=== PATIENT | female | born 1965 | race Caucasian/White ===

== ENCOUNTER 2018-04-20 01:37 | Inpatient (IN) ==
[2018-04-20] MEDS ORDERED: *HR* Promethazine 25 MG/ML VIAL IVP PRN (04:44)
[2018-04-20] MEDS ORDERED: GI Cocktail 40 ML EACH PO ONE (05:24)
[2018-04-20] MEDS ORDERED: traMADol 50 MG TABLET PO PRN (05:25)
[2018-04-20] MEDS ORDERED: Naloxone 0.4 MG/ML INJ IVP PRN (05:25)
[2018-04-20] MEDS ORDERED: Acetaminophen 325 MG TABLET PO PRN (05:25)
[2018-04-20 05:40] LABS: Basophils # 0.1 K/mcL (0.0-0.2); Basophils % 0.3 %; Eosinophils % 0.1 %; Hematocrit 43.7 % (35.3-44.9); Hemoglobin 15.1 g/dL (11.5-15.4); Immature Granulocytes % 0.4 % (0-4); Lymphocytes # 2.3 K/mcL (0.6-4.6); Lymphocytes % 13.8 %; Mean Corpuscular HGB Conc 34.6 g/dL (31.6-35.5); Mean Corpuscular Hemoglobin 31.1 pg (28.0-33.3); Mean Corpuscular Volume 89.9 fL (83.0-100.0); Mean Platelet Volume 9.4 fL (9.4-12.4); Monocytes # 2.2 K/mcL (0.0-1.3); Monocytes % 13.4 %; Neutrophils # 11.7 K/mcL (1.6-8.9); Platelet Count 259 K/mcL (140-400); Red Blood Count 4.86 M/mcL (3.82-4.97); Red Cell Distribution Width 12.1 % (11.5-14.5)
--- NOTE | 2018-04-20 05:51 | Internal Med History&Physical ---
Date of Encounter: 04/20/18 Time of Encounter: 05:00 Internal Medicine - H&P: HPI Chief complaint: CP Admitted From: Hospital to Hospital Transfer Plans for Post Hospital Care: Home History of present illness: Ms. Brewster is a 52 year old female w/PMH of HLD, thyroid disease, neuropathy, MS with injections weekly x3, and anxiety/depression presents from [facility] w/CP that pt. reports began last week as sharp and stabbing pain followed by pressure in central chest. Patient states 4 days ago she developed a fever with nausea and vomiting. Patient also reports shortness of breath and chest pain began again last night. With same symptoms of sharp/stabbing pain followed by pressure. Denies radiation to any arms, neck, or back. Patient also reports high BP and HR during symptoms. Patient reports she is a current smoker smoking 4 cigarettes per day. Denies alcohol or drug abuse. No alleviating or aggravating factors. Patient reports CP, SOB, nausea, vomiting, and fever but denies headache, changes in vision, unusual bleeding, diarrhea, constipation, dizziness, numbness, numbness, tingling, pre-syncope, or syncope. Past Med Surg Social Fam HX - Past Medical History Source: patient, old records reviewed Medical history: hyperlipidemia, thyroid disease, other (Neuropathy, MS) Psychiatric history: anxiety, depression - Past Surgical History Surgical History: breast surgery (Double mastectomy), hysterectomy (Partial) - Social History Smoking Status: Current every day smoker Packs per day: 4 cigarettes per day Smokeless Tobacco Status: No Alcohol use: none Drug use: none Current living situation: Home, With Family Activity Level: Independent ambulation Recent Out of Country Travel Within the Last 8 Weeks: No Exposure or Possible Exposure to Illness During Travel: No - Family History Mother Race: Family Member Ethnicity: Non- Living Status: Age at : 73 Cause of : Acute myeloid leukemia Hx Family Cardiac Disorders: Yes (HTN, HLD, CAD, CHF, MIs w/stents x4) Father Race: Family Member Ethnicity: Non- Living Status: Still Living Hx Family Cardiac Disorders: Yes (ND, CVA) Hx Family Endocrine Disorder: Yes (DM) Hx Family Neurologic Disorders: Yes (CVA) Brother Race: Family Member Ethnicity: Non- Living Status: Still Living Hx Family Medical Disorders: No Sister Race: Family Member Ethnicity: Non- Living Status: Still Living Hx Family Medical Disorders: No Internal Medicine - H&P: Meds Atorvastatin [Lipitor] 80 mg PO DAILY 04/20/18 [History] Gabapentin [Neurontin] 800 mg PO TID 04/20/18 [History] Levothyroxine [Synthroid] 50 mcg PO 0600 04/20/18 [History] Mirtazapine [Remeron] 30 mg PO HS 04/20/18 [History] diazePAM [Valium] 5 mg PO QID 04/20/18 [History] Allergy/AdvReac Type Severity Reaction Status Date / Time ondansetron [From Zofran] AdvReac Vomiting Verified 04/20/18 04:30 All Systems PM: A 10-system review of systems was performed and is negative for pertinent findings except as documented above in the HPI. - Constitutional Constitutional: as per HPI, fever(s), no chills, no night sweats - EENT Eyes: no change in vision, no discharge, no pain, no photophobia Ears: no ear discharge, no ear pain, no tinnitus Nose, mouth and throat: no dysphagia, no nasal discharge, no neck pain, no sore throat - Breasts Breasts: as per HPI - Cardiovascular Cardiovascular ROS IM: as per HPI, chest pain, dyspnea, dyspnea on exertion, no diaphoresis, no lightheadedness, no palpitations, no syncope - Respiratory Respiratory: as per HPI, dyspnea, dyspnea on exertion, no cough, no wheezing, no excessive phlegm production - Gastrointestinal Gastrointestinal: as per HPI, abdominal pain, heartburn, nausea, vomiting, no diarrhea, no hematemesis, no hematochezia, no melena - Genitourinary Genitourinary: no change in urinary stream, no dysuria, no flank pain, no hematuria Menstruation: as per HPI, post hysterectomy - Musculoskeletal Musculoskeletal ROS IM: no numbness, no tingling - Integumentary Integumentary IM: no rash, no unusual bruising - Neurological Neurological ROS: no confusion, no convulsions, no focal weakness, no numbness, no tingling, no tremor(s) - Psychiatric Psychiatric: as per HPI, anxiety, depression - Endocrine Endocrine IM: as per HPI - Hematologic/Lymphatic Hematologic/Lymphatic: no easy bruising - Allergic/Immunologic Allergic/Immunologic: as per HPI - Constitutional Vitals: Temp Pulse Resp BP Pulse Ox 98.7 F 115 16 109/77 94 04/20/18 03:25 04/20/18 03:25 04/20/18 03:25 04/20/18 03:25 04/20/18 03:25 General appearance: Present: cooperative, mild distress (CP), A&O X 3, pleasant, answers questions appropriately Exam: Patient examined at bedside. Pt. resting in bed and reports continued chest pain in central chest. No nausea or vomiting currently. Pt. denies any other complaints or symptoms at this time. VS: 98.7F temp, HR 115, RR 16, BP 109/77, SpO2 94% on RA. - Head Head exam: Present: atraumatic, normocephalic - Eye Eye exam: Present: PERRL, conjuntiva pink, sclera anicteric Pupils: Present: PERRL - ENT ENT exam: Present: normal exam - Neck Neck exam general surgery: Present: normal inspection, supple, trachea midline. Absent: lymphadenopathy - Respiratory Respiratory exam: Present: CTAB. Absent: accessory muscle use, rales, rhonchi, wheezes - Cardiovascular Cardiovascular exam: Present: RRR, +S1, +S2. Absent: diastolic murmur, gallop, rubs, systolic murmur - GI/Abdominal GI/Abdominal exam: Present: normal bowel sounds, soft, no peritoneal signs. Absent: distended, tenderness - Rectal Rectal exam: Present: deferred - Additional comments: exam deferred. - Extremities Exam Extremities exam: Present: warm, radial pulses palpable and symmetrical. Absent: calf tenderness, cyanotic, pedal edema - Back Exam Back exam: Present: normal inspection - Neurological Exam Neurological exam: Present: alert, CN II-XII intact, oriented X3, no focal deficits. Absent: pronater drift, facial droop, speech deficit - Psychiatric Psychiatric exam: Present: normal affect, normal mood - Skin Skin exam: Present: dry, intact Internal Med - H&P Results - Labs CBC & Chem 7: 04/20/18 06:43 04/20/18 05:21 Labs: Short CBC 04/20/18 Range/Units 05:21 WBC 16.3 H (4.3-11.1) K/mcL Hgb 15.1 (11.5-15.4) g/dL Hct 43.7 (35.3-44.9) % Plt Count 259 (140-400) K/mcL Neutrophils # 11.7 H (1.6-8.9) K/mcL - Assessment and plan (1) Chest pain Current Visit: Yes Status: Acute Assessment and plan: Acute CP that pt. reports began last week as sharp and stabbing pain followed by pressure in central chest. Patient states 4 days ago she developed a fever with nausea and vomiting. Patient also reports shortness of breath and chest pain began again last night. With same symptoms of sharp/stabbing pain followed by pressure. Denies radiation to any arms, neck, or back. Patient also reports high BP and HR during symptoms. Strong familial cardiac hx w/mother and father. Pt. denies cardiac hx or recent testing/work-up. Initial troponin 0.50. Heparin drip started. 1V portable CXR ordered. Echocardiogram. ASA. High-dose Lipitor. Continuous cardiac telemetry. EKG shows sinus tachycardia with probable left atrial enlargement and nonspecific repolarization abnormality with diffuse leads. Borderline ST elevation in anterior leads. Borderline prolonged QT interval. Cardiology consult ordered and discussed w/Dr. Newsome and I appreciate the consult and recommendations. Concern for possible PE or aortic dissection, so CTA of the chest ordered. Will await results. GI cocktail and IVP Protonix. Patient is high risk for cardiac event and further morbidity d/t current CP at rest, strong familial hx of CAD and ND (mother and father), abnormal EKG, elevated troponin requiring heparin gtt and close monitoring of pt. and PT/INR; and risk factors of current tobacco abuse, HLD. Observation. Qualifiers: Chest pain type: other chest pain Qualified Code(s): R07.89 - Other chest pain; R07.8 - Other chest pain (2) SOB (shortness of breath) Current Visit: Yes Status: Acute Assessment and plan: Acute SOB accompanying CP. Patient denies home O2 use. Concern for possible PE or aortic dissection, so CTA of the chest ordered. Will await results. (3) Nausea and vomiting Current Visit: Yes Status: Acute Assessment and plan: Acute N/V for the past several days. Currently controlled. Monitor I&O and daily weight. IVP Phenergan ordered PRN for N/V d/t pts. allergy to Zofran. GI cocktail ordered. IVP Protonix 40 mg daily. Qualifiers: Vomiting type: cyclical vomiting Vomiting Intractability: non-intractable Qualified Code(s): G43.A0 - Cyclical vomiting, not intractable (4) Leukocytosis Current Visit: Yes Status: Acute Assessment and plan: Acute leukocytosis w/WBC of 16.3 on admission. Patient reports approximately 1 week of nausea, vomiting, fever accompanying chest pain and shortness of breath. 1 view portable CXR ordered. Respiratory infection panel ordered. Blood cultures 2 ordered. Lactic acid ordered. No identifiable infection source at this time but will review culture and panel results. Pt. currently afebrile. HR 115. RR 16. Pt. meets sepsis criteria w/HR and WBC, however both could be attributable to current CP and elevated troponin. Will monitor pt. and f/u labs closely. Qualifiers: Leukocytosis type: unspecified Qualified Code(s): D72.829 - Elevated white blood cell count, unspecified (5) HLD (hyperlipidemia) Current Visit: Yes Status: Chronic Assessment and plan: Hx of chronic HLD. Lipid panel in a.m. labs. Continue pts. Lipitor 80 mg HS. Received 80 mg on admission d/t current CP. Qualifiers: Hyperlipidemia type: pure hypercholesterolemia Qualified Code(s): E78.00 - Pure hypercholesterolemia, unspecified; E78.0 - Pure hypercholesterolemia (6) Thyroid disease Current Visit: Yes Status: Chronic Assessment and plan: Hx of chronic thyroid disease. Continue pts. Synthroid. TSH ordered. (7) Multiple sclerosis Current Visit: Yes Status: Chronic Assessment and plan: Hx of chronic MS. Pt. reports taking injections weekly x3. States she is to start seeing Dr. Moya on May 25. Continue injections on OP basis. (8) Neuropathy Current Visit: Yes Status: Chronic Assessment and plan: Pt. reports hx of chronic neuropathy in bilateral LEs. Continue pts. Neurontin. (9) Anxiety and depression Current Visit: Yes Status: Chronic Assessment and plan: Hx of chronic anxiety and depression. Continue pts. Remeron and Valium. (10) DVT prophylaxis Current Visit: Yes Status: Acute Assessment and plan: Heparin drip for DVT prophylaxis d/t current initial troponin of 0.50. Monitor pt. for signs of bleeding. - Time Spent With Patient Total time spent is greater than 50% in coordination of care (as documented) at patient's floor/unit and/or counseling patient: Greater than 35 minutes
[2018-04-20 06:03] LABS: Alanine Aminotransferase 11 Units/L (7-52); Albumin/Globulin Ratio 1.5 (1.1-2.2); Alkaline Phosphatase 53 Units/L (34-104); Aspartate Amino Transferase 13 Units/L (13-39); BUN/Creatinine Ratio 12 (6-26); Bilirubin,Total 1.1 mg/dL (0.3-1.0); Blood Urea Nitrogen 7 mg/dL (6-20); Calcium 8.9 mg/dL (8.6-10.3); Carbon Dioxide 26 mEq/L (23-29); Chloride 107 mEq/L (98-107); Globulin 2.6 g/dL (2.4-3.5); Glucose 131 mg/dL (70-105); Osmolality,Calculated 292 (280-300); Potassium 3.3 mEq/L (3.5-5.1); Sodium 141 mEq/L (136-145); Total Protein 6.6 g/dL (6.4-8.9); eGFR For Non-African Americans > 60 (> 60)
[2018-04-20] MEDS ORDERED: *HR* Heparin 5,000 UNIT/ML VIAL IVP PRN ×2 (06:20)
[2018-04-20] MEDS ORDERED: *HR* Heparin 5,000 UNIT/ML VIAL IVP ONE (06:20)
[2018-04-20] MEDS ORDERED: Pantoprazole 40 MG VIAL IVP SCH (06:30)
[2018-04-20] MEDS ORDERED: Heparin 25,000 UNIT/500 ML D5W 25,000 UNIT/500 ML BAG IVC SCH (06:30)
[2018-04-20] MEDS ORDERED: Isovue-370 500 ML INFUS..BTL IV ONE ×2 (06:50→06:53)
[2018-04-20 07:14] LABS: Hematocrit 42.4 % (35.3-44.9); Hemoglobin 14.8 g/dL (11.5-15.4); Mean Corpuscular HGB Conc 34.9 g/dL (31.6-35.5); Mean Corpuscular Hemoglobin 31.4 pg (28.0-33.3); Mean Corpuscular Volume 89.8 fL (83.0-100.0); Mean Platelet Volume 9.5 fL (9.4-12.4); Platelet Count 259 K/mcL (140-400); Red Blood Count 4.72 M/mcL (3.82-4.97)
[2018-04-20 07:40] LABS: INR 1.6; Prothrombin Time 18.3 Seconds (9.4-12.1)
[2018-04-20 07:51] LABS: Heparin anti-factor XA UFH 1.07 IU/mL (0.30-0.70)
[2018-04-20] MEDS ORDERED: *HR* Morphine Soln 10 MG/5 ML UDC PO PRN (07:54)
[2018-04-20] MEDS ORDERED: Perflutren Lipid Microsphere 1.3 ML in 0.9 % Sodium Chloride 8.7 ML IVP ONE (08:00)
[2018-04-20 09:11] LABS: Amphetamine Screen,Urine Negative ng/mL (Cutoff=1000); Barbiturate Screen,Urine Negative ng/mL (Cutoff=200); Benzodiazepines Screen,Urine Positive ng/mL (Cutoff=200); Cannabinoid Screen,Urine Negative ng/mL (Cutoff = 50); Cocaine Screen,Urine Negative ng/mL (Cutoff= 300); Opiate Screen,Urine Positive ng/mL (Cutoff=300); Phencyclidine Screen,Urine Negative ng/mL (Cutoff=25)
--- NOTE | 2018-04-20 09:30 | Internal Med Progress Note ---
<Maikel Adan - Last Filed: 04/20/18 15:24> Hospitalist Progress Note - Encounter Date of Encounter: 04/20/18 Time of Encounter: 14:42 - Subjective Interval History: Patient was seen and examined this morning. Patient states that she has continued to have intermittent episodes of chest pain, described to be a dull- like pressure in the middle to left side of her chest radiating into her left arm. She states that slight improvement when she is sitting up. No known exertional component that she is aware of. She currently denies any nausea or vomiting, fevers or chills. She does state however that over the past week she has been having subjective fevers and chills. Patient states that she is a chronic smoker, however most recently she is decreased to half a pack per day. She did discuss that she is looking to completely stop smoking given his recent diagnosis. Patient denies any abdominal pain, change in bowels or rash. - Exam Vitals: Temp Pulse Resp BP Pulse Ox 98.7 F 115 16 109/77 94 04/20/18 03:25 04/20/18 03:25 04/20/18 03:25 04/20/18 03:25 04/20/18 03:25 Exam: Gen.: Patient is a pleasant female, sitting up in bed, in slight distress given that the pie dough roller had recently come in and told her that she was going to be having a left heart catheterization, became slightly tearful during our conversation HEENT: Atraumatic, normocephalic, no pallor in the conjunctiva, uvula is midline Chest: Tachycardic, regular rhythm, no murmurs gallops or rubs Respiratory: Minimal wheezing throughout, no crackles, rhonchi or reveals Abdomen: Abdomen is soft, nontender, no guarding or rebound Extremities: No pitting edema, rash, lesions Neuro: Sensation intact, patient able to move all 4 extremities Psych: Patient appears slightly anxious - Assessment and Plan (1) NSTEMI (non-ST elevated myocardial infarction) Current Visit: Yes Status: Acute Assessment and Plan: Patient was a transfer from [facility], where she had CT performed and was inpatient for 3 days following diagnosis of ileus without obstruction. Patient had continued four-day history of chest pain, with shortness of breath. Patient has multiple respecters including hyperlipidemia, history of smoker, an extensive family history of CAD CTA showed no PE or aortic dissection Patient had elevated troponin at 0.910 at [facility], on arrival to [place] was 0.50 on repeat it is appears to be trending down. Patient continues to have intermittent chest pain. Concern with an NSTEMI type I versus type II and a recent setting of elevated blood pressure and ileus. EKG was not obtained on the floor, however there are remarks this was a borderline EKG. Patient had echocardiogram performed which showed ejection fraction of 35% with global left ventricular systolic dysfunction, most prominent in septal segments. left heart catheter was performed on 1 with normal coronaries. Final repo, there was an episode of SVT that was self terminating. Cardiology recommendation is to chidi aspirin, statin, beta wilmer. Recommends adding lisinopril 2.5 mg with outpatient follow-up in 2-3 weeks Plan Continue with cardiology recommendations Continue aspirin, statin, beta wilmer and continue at home lisinopril 2.5 milligrams with outpatient follow-up Continue to monitor with cardiac monitoring and pulse ox Continue to monitor for further SVT continue heparin drip per cardiology (2) HLD (hyperlipidemia) Current Visit: Yes Status: Chronic Assessment and Plan: patient with known heart history of hyperlipidemia Plan Continue statin (3) Thyroid disease Current Visit: Yes Status: Chronic Assessment and Plan: patient with known history of thyroid Continue at home medications Plan Continue at home medications (4) DVT prophylaxis Current Visit: Yes Status: Acute Assessment and Plan: continue heparin drip (5) Leukocytosis Current Visit: Yes Status: Acute Assessment and Plan: patient was found to have a leukocytosis with WBCs of 16, today 16.1. possibly due to infectious etiology, in light of recent ileus Plan We will continue to monitor We will obtain a urinalysis Chest x-ray is negative for acute pneumonia or opacity - Time Spent with Patient Total time spent is greater than 50% in coordination of care (as documented) at patient's floor/unit and/or counseling patient: less than 15 minutes Plan of Care Discussed with: patient Internal Medicine: Result - Labs CBC & Chem 7: 04/20/18 06:43 04/20/18 13:10 Labs: Short CBC 04/20/18 04/20/18 Range/Units 05:21 06:43 WBC 16.3 H 16.1 H (4.3-11.1) K/mcL Hgb 15.1 14.8 (11.5-15.4) g/dL Hct 43.7 42.4 (35.3-44.9) % Plt Count 259 259 (140-400) K/mcL Neutrophils # 11.7 H (1.6-8.9) K/mcL BMP 04/20/18 05:21 Sodium 141 Potassium 3.3 L Chloride 107 Carbon Dioxide 26 BUN 7 Creatinine 0.59 L Glucose 131 H Calcium 8.9 Cardiac Enzymes 04/20/18 Range/Units 05:21 Troponin I 0.50 H* (< 0.04) ng/mL Liver Function 04/20/18 Range/Units 05:21 Total Bilirubin 1.1 H (0.3-1.0) mg/dL AST 13 (13-39) Units/L ALT 11 (7-52) Units/L Alkaline Phosphatase 53 (34-104) Units/L Albumin 4.0 (3.5-5.7) g/dL - ABG Interpretation ABG results: PT/INR, D-dimer PT 18.3 Seconds (9.4-12.1) H 04/20/18 06:43 - Impressions Impressions Chest X-Ray 04/20/18 05:59 IMPRESSION: Persistent areas of subsegmental atelectasis of right lung base. No radiographic evidence of pneumonia or pleural effusion. Continued follow-up could be helpful for further evaluation. D/ / Alan Ambriz / Alan Ambriz Interpreting Provider: Alan Ambriz Chest CTA 04/20/18 06:53 IMPRESSION: 1. No evidence for acute pulmonary embolism. 2. Bilateral small pleural effusions and adjacent posterior basal subsegmental atelectasis and small amount of right lower lobe anterior basal subsegmental atelectasis. D/ / Roldan Parmar MD / Roldan Parmar MD Interpreting Provider: Roldan Pamrar MD Consult Discharge Plan - Plan Referrals: Marylou Shah, ADMINISTRATOR OF HOME HEALTH [Primary Care Provider] - <Samantha Masters - Last Filed: 04/20/18 20:05> Hospitalist Progress Note - Encounter Date of Encounter: 04/20/18 - Exam Vitals: Temp Pulse Resp BP Pulse Ox 97.2 F L 98 16 82/59 95 04/20/18 19:49 04/20/18 19:49 04/20/18 19:49 04/20/18 19:49 04/20/18 19:49 - Assessment and Plan (1) Chest pain Current Visit: Yes Status: Acute (2) Nausea and vomiting Current Visit: Yes Status: Acute (3) Leukocytosis Current Visit: Yes Status: Acute (4) HLD (hyperlipidemia) Current Visit: Yes Status: Chronic (5) Thyroid disease Current Visit: Yes Status: Chronic (6) Multiple sclerosis Current Visit: Yes Status: Chronic (7) Neuropathy Current Visit: Yes Status: Chronic (8) Anxiety and depression Current Visit: Yes Status: Chronic (9) DVT prophylaxis Current Visit: Yes Status: Acute (10) SOB (shortness of breath) Current Visit: Yes Status: Acute - Time Spent with Patient Total time spent is greater than 50% in coordination of care (as documented) at patient's floor/unit and/or counseling patient: Internal Medicine: Result - Labs CBC & Chem 7: 04/20/18 06:43 04/20/18 13:10 Labs: Short CBC 04/20/18 04/20/18 Range/Units 05:21 06:43 WBC 16.3 H 16.1 H (4.3-11.1) K/mcL Hgb 15.1 14.8 (11.5-15.4) g/dL Hct 43.7 42.4 (35.3-44.9) % Plt Count 259 259 (140-400) K/mcL Neutrophils # 11.7 H (1.6-8.9) K/mcL BMP 04/20/18 04/20/18 05:21 13:10 Sodium 141 Potassium 3.3 L 3.3 L Chloride 107 Carbon Dioxide 26 BUN 7 Creatinine 0.59 L Glucose 131 H Calcium 8.9 Cardiac Enzymes 04/20/18 04/20/18 04/20/18 Range/Units 05:21 10:03 16:59 Troponin I 0.50 H* 0.29 H* 0.20 H* (< 0.04) ng/mL Liver Function 04/20/18 Range/Units 05:21 Total Bilirubin 1.1 H (0.3-1.0) mg/dL AST 13 (13-39) Units/L ALT 11 (7-52) Units/L Alkaline Phosphatase 53 (34-104) Units/L Albumin 4.0 (3.5-5.7) g/dL Urine 04/20/18 Range/Units 07:57 Urine Color Yellow (Yellow) Urine Clarity Clear (Clear) Urine pH 6.0 (5.0-8.0) pH Units Ur Specific [place] 1.015 (1.010-1.025) Urine Protein Negative (Neg-Trace) mg/dL Urine Glucose (UA) Normal (Normal) mg/dL - ABG Interpretation ABG results: PT/INR, D-dimer PT 18.3 Seconds (9.4-12.1) H 04/20/18 06:43 - Impressions Impressions Echocardiogram 04/20/18 04:47 Impressions: LVEF 35%. Normal LV chamber size, wall thickness. Global left ventricular systolic dysfunction, but most prominent in the septal segments. Mild left ventricular diastolic dysfunction. Normal right ventricular structure and function. Unable to estimate RVSP due to lack of TR jet. No significant valvular dysfunction. Findings discussed with cardiology rounding team. Left Ventricular Wall Motion: Rest Echo Findings The apex, apical inferior, mid inferior, basal inferior, apical anterior, mid anterior, basal anterior, apical septal, mid inferior septal, basal inferior septal, apical lateral, mid anterior lateral, basal anterior lateral, mid anterior septal, mid inferior lateral, basal anterior septal and basal inferior lateral dutton were hypokinetic. Findings: Study Quality * Technically adequate exam. ECG Findings * Sinus tachycardia. Left Ventricle * LVEF 35%. * Normal LV chamber size, wall thickness. * Global left ventricular systolic dysfunction, but most prominent in the septal segments. * Mild left ventricular diastolic dysfunction. Right Ventricle * Normal right ventricular structure and function. Left Atrium * Mildly dilated left atrium. Right Atrium * Normal right atrial size. Aortic Valve * Aortic valve not well visualized. * No aortic stenosis. * No aortic regurgitation. Mitral Valve * Normal mitral valve structure and function. * No mitral regurgitation. * No mitral stenosis. Tricuspid Valve * Normal tricuspid valve structure and function. * No tricuspid regurgitation. * Unable to estimate RVSP due to lack of TR jet. Pulmonic Valve * Pulmonic valve not well visualized. Aorta * Normally sized aortic root. Pericardium * The pericardium appears normal. IVC * Normal IVC dimensions and inspiratory collapse. Pulmonary Artery * Pulmonary artery not well visualized. Chest X-Ray 04/20/18 05:59 IMPRESSION: Persistent areas of subsegmental atelectasis of right lung base. No radiographic evidence of pneumonia or pleural effusion. Continued follow-up could be helpful for further evaluation. D/ / Alan Ambriz / Alan Ambriz Interpreting Provider: Alan Ambriz Chest CTA 04/20/18 06:53 IMPRESSION: 1. No evidence for acute pulmonary embolism. 2. Bilateral small pleural effusions and adjacent posterior basal subsegmental atelectasis and small amount of right lower lobe anterior basal subsegmental atelectasis. D/ / Roldan Parmar MD / Roldan Parmar MD Interpreting Provider: Roldan Parmar MD - Attending Attestation I have examined this patient [id number] and my medical decision-making was reviewed with the Resident Physician. I agree with the documented findings, disposition and treatment plan as described except to the extent set forth [place] ow. <Maikel Adan - Last Filed: 04/20/18 15:24> (2) HLD (hyperlipidemia) Qualifiers: Hyperlipidemia type: pure hypercholesterolemia Qualified Code(s): E78.00 - Pure hypercholesterolemia, unspecified; E78.0 - Pure hypercholesterolemia (5) Leukocytosis Qualifiers: Leukocytosis type: unspecified Qualified Code(s): D72.829 - Elevated white blood cell count, unspecified <Samantha Masters - Last Filed: 04/20/18 20:05> (1) Chest pain Qualifiers: Chest pain type: chest pain due to myocardial ischemia Ischemic chest pain type: unstable angina pectoris Qualified Code(s): I20.0 - Unstable angina (2) Nausea and vomiting Qualifiers: Vomiting type: cyclical vomiting Vomiting Intractability: non-intractable Qualified Code(s): G43.A0 - Cyclical vomiting, not intractable (3) Leukocytosis Qualifiers: Leukocytosis type: unspecified Qualified Code(s): D72.829 - Elevated white blood cell count, unspecified (4) HLD (hyperlipidemia) Qualifiers: Hyperlipidemia type: pure hypercholesterolemia Qualified Code(s): E78.00 - Pure hypercholesterolemia, unspecified; E78.0 - Pure hypercholesterolemia
--- NOTE | 2018-04-20 09:35 | Cardiology Consult Note ---
<Kim Paulson Dolores - Last Filed: 04/20/18 09:50> Date of Encounter: 04/20/18 Time of Encounter: 08:20 Assessment and Plan (1) Elevated troponin Current Visit: Yes Status: Acute Troponin 0.910 at [facility], now 0.50. NSTEMI type I vs type II in the setting of severely elevated BP, intractable n/v x3 days. Borderline ECG changes noted. Describes both atypical and typical chest pain symptoms. Reproduc Risk factors for CAD include: positive family hx (maternal, paternal), HLD, ?HTN, and tobacco use. Echo pending. Continue heparin gtt, asa, statin, and BB. Recommend LHC with possible PCI to r/o ischemic etiology; A/R/B discussed, she is agreeable to proceed. Will further discuss with Dr. iVllarreal. (2) Chest pain Current Visit: Yes Status: Acute Plan as above. Qualifiers: Chest pain type: chest pain due to myocardial ischemia Ischemic chest pain type: unstable angina pectoris Qualified Code(s): I20.0 - Unstable angina (3) Nausea and vomiting Current Visit: Yes Status: Acute Mgmt per primary service. Qualifiers: Vomiting type: cyclical vomiting Vomiting Intractability: non-intractable Qualified Code(s): G43.A0 - Cyclical vomiting, not intractable Discussion w patient/family: The assessment and plan as outlined above was discussed with the patient and/or family members who expressed understanding and agreement. All questions were answered. Thank you for involving us in the care of your patient. Please call with any questions. The patient will be discussed and reviewed with Dr. Villarreal; changes to be made accordingly. History of Present Illness Consult date: 04/20/18 Requesting physician: Kyle Soares Consult reason: Elevated troponin Chief complaint: Chest pain; n/v History of present illness: Ms. Brewster is a 52 year old female with PMHx significant of anxiety, HLD, MS, and tobacco abuse who presented as a transfer from [facility] ED (patient request) due to elevated troponin--0.9210. Patient reports 2-3 day history of intractable nausea with vomiting, reports has not been able to keep anything down; denies exposure to sick contacts. CT abd/pelvis at [facility] demonstrated ileus without bowel obstruction. Potassium was 2.8. Blood pressure was noted to be severely elevated upon presentation at 177/103. She describes left-sided chest heaviness and pressure with radiation to left arm; also reports chest pain when taking a deep breath and chest pressure that worsens when lying down. Of note, patient reports left-sided chest discomfort associated with dyspnea over the past 1-2 months that worsens with exertion (walking up hills) and improves with rest. She notes she thought it was r/t tobacco abuse which prompted decrease in cigarette consumption--down to 5 cigarettes/day from >1 ppd. No prior CV testing noted. She reports at least 16 surgeries in the past secondary to complications from double mastectomy (multiple benign breast tumors). Past Med Surg Social Fam HX - Past Medical History Attestation: Yes The following information was validated with the patient. Source: patient Medical history: hyperlipidemia, thyroid disease, other (Neuropathy, MS) Psychiatric history: anxiety, depression - Past Surgical History Surgical History: breast surgery (Double mastectomy), hysterectomy (Partial) Additional surgical history: bilateral mastectomy, - Social History Smoking Status: Current every day smoker Packs per day: 4 cigarettes per day Smokeless Tobacco Status: No Alcohol use: none Drug use: none - Family History Mother Race: Family Member Ethnicity: Non- Living Status: Age at : 73 Cause of : Acute myeloid leukemia Hx Family Cardiac Disorders: Yes (HTN, HLD, CAD, CHF, MIs w/stents x4) Father Race: Family Member Ethnicity: Non- Living Status: Still Living Hx Family Cardiac Disorders: Yes ([place], CVA) Hx Family Endocrine Disorder: Yes (DM) Hx Family Neurologic Disorders: Yes (CVA) Brother Race: Family Member Ethnicity: Non- Living Status: Still Living Hx Family Medical Disorders: No Sister Race: Family Member Ethnicity: Non- Living Status: Still Living Hx Family Medical Disorders: No Medications and Allergies Atorvastatin [Lipitor] 80 mg PO DAILY 04/20/18 [History] Gabapentin [Neurontin] 800 mg PO TID 04/20/18 [History] Levothyroxine [Synthroid] 50 mcg PO 0600 04/20/18 [History] Mirtazapine [Remeron] 30 mg PO HS 04/20/18 [History] diazePAM [Valium] 5 mg PO QID 04/20/18 [History] Allergy/AdvReac Type Severity Reaction Status Date / Time ondansetron [From Zofran] AdvReac Vomiting Verified 04/20/18 04:30 All Systems Review: The remainder of the systems were reviewed and are negative - Cardiovascular Cardiovascular: as per HPI Physical Examination General: Conversant, No Apparent Distress HEENT: Atraumatic, Normocephaly Cardiac: Reg Rate and Rhythm, Normal S1 and S2 Lungs: Normal Breath Sounds Neuro: Alert and responsive Abdomen: Soft Skin: No rashes noted on visualized skin Musculoskeletal: Other (reproducible chest wall tenderness) Extremities: No Edema, Normal Pulses Results 04/20/18 06:43 04/20/18 05:21 Lab Results 04/20/18 04/20/18 04/20/18 05:21 05:21 06:43 WBC 16.3 H 16.1 H Hgb 15.1 14.8 Hct 43.7 42.4 Plt Count 259 259 INR Sodium 141 Potassium 3.3 L Chloride 107 Carbon Dioxide 26 BUN 7 Creatinine 0.59 L Glucose 131 H Calcium 8.9 Total Bilirubin 1.1 H AST 13 ALT 11 Alkaline Phosphatase 53 Troponin I 0.50 H* 04/20/18 06:43 WBC Hgb Hct Plt Count INR 1.6 Sodium Potassium Chloride Carbon Dioxide BUN Creatinine Glucose Calcium Total Bilirubin AST ALT Alkaline Phosphatase Troponin I Active Medications Acetaminophen (Tylenol) 650 mg PO Q6HR PRN PRN Reason: Mild Pain/Fever Stop: 10/20/18 05:26 Aspirin (Aspirin Ec) 81 mg PO DAILY [facility] Stop: 10/20/18 09:01 Atorvastatin Calcium (Lipitor) 80 mg PO DAILY [facility] Stop: 10/21/18 05:01 Diazepam (Valium) 5 mg PO QID [facility] Stop: 10/20/18 09:01 Gabapentin (Neurontin) 800 mg PO TID [facility] Stop: 10/20/18 09:01 Heparin Sodium (Porcine) (Heparin) 3,900 unit 60 unit/kg (3900 unit) IVP Q6HR PRN PRN Reason: SEE COMMENTS Stop: 10/20/18 06:21 Heparin Sodium (Porcine) (Heparin) 2,000 unit 30 unit/kg (2000 unit) IVP Q6H PRN PRN Reason: SEE COMMENTS Stop: 10/20/18 06:21 Heparin Sodium/Dextrose (Heparin 25,000 Unit/500 Ml D5w) 25,000 unit in 500 mls @ 15.731 mls/hr IVC .Q24H [facility]; Protocol Stop: 10/20/18 06:31 Last Titration: 04/20/18 07:59 Dose: 0 unit/kg/hr, 0 mls/hr Levothyroxine Sodium (Synthroid) 50 mcg PO 0600 [facility] Stop: 10/20/18 06:01 Last Admin: 04/20/18 06:06 Dose: 50 mcg Mirtazapine (Remeron) 30 mg PO HS [facility] Stop: 10/20/18 21:01 Morphine Sulfate (Morphine Sulfate) 10 mg PO Q6HR PRN PRN Reason: Severe Pain Stop: 10/20/18 07:55 Naloxone HCl (Narcan) 0.4 mg IVP Q2MIN PRN PRN Reason: SEE COMMENTS Stop: 10/20/18 05:26 Omeprazole (Prilosec) 40 mg PO DAILY@0730 [facility]; Protocol Stop: 10/21/18 07:31 Promethazine HCl (Phenergan) 12.5 mg IVP Q6HR PRN PRN Reason: Nausea And Vomiting Stop: 10/20/18 04:45 Tramadol HCl (Ultram) 50 mg PO Q6HR PRN PRN Reason: Moderate Pain Stop: 10/20/18 05:26 Last Admin: 04/20/18 06:06 Dose: 50 mg - Imaging and Cardiology Echo: pending Other Results: 12 hour tele: avg RQ=416 ST. - EKG Interpretation EKG results cardiology: personally reviewed Consult Discharge Plan - Plan Referrals: Marylou Shah CNP [Primary Care Provider] - <Erika Villarreal - Last Filed: 04/20/18 13:11> Date of Encounter: 04/20/18 - Attending Attestation I examined this patient and my medical decision-making was reviewed with the COMMUNICATIONS PROJECT LEAD. I agree with the documented findings, disposition and treatment plan as described. Ms. Brewster transferred from [facility] for chest pain. Patient diagnosed with NSTEMI. Echo demonstrated newly discovered LV systolic dysfunction, LVEF 35%. AAOx3, NAD, chest pain free at bedside. Vital signs stable. No concerning exam findings. Labs reviewed. ECG without acute findings. Impression: 1. NSTEMI: Recommend patient proceed with [facility]. The R/B/A of the procedure were discussed with the patient who expressed understanding of the risks and agreement to proceed. Continue asa, statin, BB, heparin gtt. 2. Systolic CHF: Chronicity unknown. Patient's symptoms started a few months ago. Recommend guideline directed medical therapy. [facility] today. Assessment and Plan Discussion w patient/family: The assessment and plan as outlined above was discussed with the patient and/or family members who expressed understanding and agreement. All questions were answered. Thank you for involving us in the care of your patient. Please call with any questions. History of Present Illness History of present illness: Ms. Brewster is a 52 year old female All Systems Review: The remainder of the systems were reviewed and are negative Results 04/20/18 06:43 04/20/18 05:21 Lab Results 04/20/18 04/20/18 04/20/18 05:21 05:21 06:43 WBC 16.3 H 16.1 H Hgb 15.1 14.8 Hct 43.7 42.4 Plt Count 259 259 INR Sodium 141 Potassium 3.3 L Chloride 107 Carbon Dioxide 26 BUN 7 Creatinine 0.59 L Glucose 131 H Calcium 8.9 Total Bilirubin 1.1 H AST 13 ALT 11 Alkaline Phosphatase 53 Troponin I 0.50 H* 04/20/18 04/20/18 06:43 10:03 WBC Hgb Hct Plt Count INR 1.6 Sodium Potassium Chloride Carbon Dioxide BUN Creatinine Glucose Calcium Total Bilirubin AST ALT Alkaline Phosphatase Troponin I 0.29 H*
[2018-04-20] MEDS: Gabapentin 400 MG CAPSULE PO SCH ×3 (09:41→21:21)
[2018-04-20] MEDS: diazePAM 5 MG TABLET PO SCH ×3 (09:41→17:41)
[2018-04-20] MEDS: Aspirin Enteric Coated 81 MG Tablet PO SCH (09:42)
[2018-04-20] MEDS: *HR* Morphine Soln 10 MG/5 ML UDC PO PRN ×2 (10:14→17:41)
[2018-04-20] MEDS: Metoprolol XL (24 HR) Succ 25 MG TAB.ER.24H PO SCH (10:14)
[2018-04-20] MEDS ORDERED: Verapamil 5 MG/2 ML VIAL ONE (13:39)
--- NOTE | 2018-04-20 13:39 | Pre-Sedation Evaluation ---
Pre-sedation evaluation - Pre-sedation checklist Date of procedure: 04/20/18 Procedure: heart cath Recent Vitals: Last Vital Signs Temp 98.7 F 04/20/18 03:25 Pulse 115 04/20/18 03:25 Resp 16 04/20/18 03:25 BP 109/77 04/20/18 03:25 Pulse Ox 94 04/20/18 03:25 H&P (including ROS) documented in medical record: Yes Previous reaction to sedatives/anesthetics: No Dietary Status: Clear fluids after Midnight Dentition: full dentition ASA Classification *see protocol: CLASS II-Mild systemic disease Plan of Care: Pt appropriate candidate for procedure/moderate/conscious sedation, Risks/benefits of procedure/sedation discussed w/ patient/family Cardiac Registry (Cardio Only) - Functional Capacity Functional Capacity: >=4 METS with symptoms - Clincal Frailty Scale Clinical Frailty Scale: Managing Well
[2018-04-20] MEDS ORDERED: *HR* Heparin 10,000 UNIT/10 ML VIAL ONE (13:40)
[2018-04-20] MEDS ORDERED: Heparin 1,000 UNITS/500 mL 500 ML ONE (13:40)
[2018-04-20] MEDS ORDERED: ISOVUE-370 200 ML INFUS..BTL ONE (13:40)
[2018-04-20] MEDS ORDERED: Nitroglycerin 1,000 MCG/10 ML VIAL IV ONE (13:40)
[2018-04-20] MEDS ORDERED: 0.9 % Sodium Chloride 1,000 ML ONE ×2 (13:40→13:41)
[2018-04-20] MEDS ORDERED: *HR* Midazolam HCl 5 MG/5 ML VIAL IVP ONE (13:51)
[2018-04-20] MEDS ORDERED: *HR* FentaNYL (PF) 100 MCG/2 ML VIAL ONE (13:51)
[2018-04-20] MEDS ORDERED: *HR* Adenosine 6 MG/2 ML VIAL IVP ONE (14:34)
--- NOTE | 2018-04-20 14:53 | Electrocardiograph Report ---
[address] [address] Test Date: 2018-04-20 Pat Name: Katie Brewster Department: 109 Room: 2A Gender: F Mingler Operator: : 1965 Requested By: [id number] Order Number: [id number] Reading MD: Kyle Wilkerson Measurements Intervals [place] Rate: 110 P: 56 LA: 112 QRS: 61 QRSD: 81 T: 109 QT: 365 QTc: 430 Interpretive Statements SINUS TACHYCARDIA WITH SHORT LA INTERVAL LEFT VENTRICULAR HYPERTROPHY AND ST-T CHANGE Electronically Signed On 04-20-2018 14:51:41 EST by Kyle Wilkerson
--- NOTE | 2018-04-20 15:09 | Invasive Diagnostic Lab Proc ---
Name: Katie Brewster Date of Study: 04/20/2018 Date: 1965 Ht: 65.0in Medical Record#: [id number] Age: 52 Wt: 143.30lb Gender: Female BSA: 1.72 Order #: [id number] BMI: 23.88 Physicians Procedure Physician: Rene Correa MD, [facility] Referring MD: Referring MD: Staff Name Position Time In Kimberly Tafoya RT (R) Monitor 01:47 PM Tara Nicolas RN [employer] Machine Operator 01:47 PM Maribel Hager RN Nurse 01:47 PM [facility] Celi RT (R) Scrub 01:48 PM Procedures Performed Procedure L HRT ARTERY/VENTRICLE ANGIO Pre-Procedure Checklist Informed consent is complete signed and on chart. H&P is on chart. ID band is on and ID verified with patient. Patient NPO for procedure The procedure was described for the patient and questions were answered. Blood Pressure: 109/77 ECG is on chart. Rhythm: NSR Plan of Care Patient will tolerate the procedure without complications. Adequate level of comfort will be maintained. Hemodynamics will remain stable Patient will recover from procedure without complications. Respiratory function will be maintained. Cardiac rhythm will remain stable. Patient temperature will be maintained. Patient and/or family have verbalized understanding of the procedure. Patient Education Chief Complaint/Reason for Test: Cardiac Cath Developmental Category: Adult (18-64 years) Developmentally Appropriate for Age: Yes Learning Barriers: None Education Needs: Procedure Education Method: Verbal Information Taught: Cardiac Cath Educational Evaluation: Able to repeat information Intravenous Access Time IV Size Location DC'd Fluid/Drip Rate Units RN 20g 1 05/20" Patent On Arrival Lt Antecubital 0.9NaCl Allergies ondansetron No Known Allergies Vital Signs Time BP (mmHg) HR (bpm) O2 Sat. RR (bpm) LOC 109 / 77 115 94 % 16 5 = Fully awake and oriented or at pre-proc level 01:49 PM / % 5 = Fully awake and oriented or at pre-proc level 01:49 PM / % 5 = Fully awake and oriented or at pre-proc level 02:04 PM / % 5 = Fully awake and oriented or at pre-proc level 01:59 PM 108 / 76 108 96 % 14 02:04 PM 103 / 70 102 97 % 22 02:09 PM 97 / 74 106 97 % 14 02:14 PM 96 / 70 103 96 % 19 02:19 PM 95 / 70 101 96 % 20 02:24 PM 97 / 44 102 97 % 24 02:29 PM 104 / 74 95 96 % 19 02:34 PM 110 / 73 101 99 % 02:39 PM 106 / 69 97 97 % 22 Procedural Medications Time Medication Dose Units Method Given By 01:59 PM Oxygen 2 L/min nasal cannula Tara Nicolas RN 02:08 PM Versed 2 mg Intravenous Tara Nicolas RN 02:08 PM Fentanyl 50 mcg Intravenous Tara Nicolas RN 02:19 PM Versed 1 mg Intravenous Tara Nicolas RN 02:20 PM Fentanyl 25 mcg Intravenous Tara Nicolas RN 02:22 PM Lidocaine 2% 20 ml Subcutaneous Rene Correa MD, FACC 02:44 PM Fentanyl 25 mcg Intravenous Rene Correa MD ASA Classification: CLASS II- Mild systemic disease (i.e. well-controlled diabetes, hypertension, asthma, cigarette smoking) Alireza Score Preprocedure Postprocedure Activity 2- Moves 4 extremities sustained head lift Activity 2- Moves 4 extremities sustained head lift Circulation 2- SBP +/= 20 points of pre-anesthetic level Circulation 2- SBP +/= 20 points of pre-anesthetic level Consciousness 2- Awake and alert oriented x 3 Consciousness 2- Awake and alert oriented x 3 O2 Saturation 2- Able to maintain O2 satruation of 92% on room air O2 Saturation 2- Able to maintain O2 satruation of 92% on room air Respiratory 2- Able to deep breathe and cough well Respiratory 2- Able to deep breathe and cough well Total Score 10 Total Score 10 Contrast Agent: Isovue Diagnostic Contrast: 61 ml Total Contrast: 61 ml Fluoro Dose: 1594 mGy Procedure Log Time Note Enter By 01:41 PM CathStat 01:47 PM Kimberly Tafoya RT (R) Position: Monitor Time in: 13:47 [facility] 01:47 PM Tara Nicolas RN Position: [employer] Machine Operator Time in: 13:47 [facility] 01:48 PM Maribel Hager RN Position: Nurse Time in: 13:47 [facility] 01:48 PM Celi Acharya RT (R) Position: Scrub Time in: 13:48 [facility] 01:48 PM Patient charges- Angio tray pack, Navilyst 3mm J, Pulse Oximetry and ACIST tubing and transducer IV Supplies used: J loop Angio Cath. 48 PM Pt arrived to analyst microbiology lab 2 at 13:48 49 PM Time: 13:49 Patient comfortable and pain free: Yes Time: 13:49LOC: 5 = Fully awake and oriented or at pre-proc level PM Physician arrived :58 PM ASA Class CLASS II- Mild systemic disease (i.e. well-controlled diabetes, hypertension, asthma, cigarette smoking) Meet and greet completed Sign in performed according to hospital policy. Informed consent was obtained. Procedure start Case Start PM Vitals capture started with the following parameters, Patient=Adult, Interval=5 min, Initial Hsmeemfb=167 mmHg, Deflation Rate=5 mmHg, Cuff placed on Right Arm Time: : Oxygen on at 2 L/min per nasal cannula by Tara Nicolas RN Hair removed from procedure site in holding area using clippers. Right wrist, right groin prepped with Chloraprep by Celi Acharya), then patient was draped. Skin intact. EG=507 bpm, PSWM=251/76 mmhg, SpO2=96.0 %, Resp=14 B/min, EtCO2=39 mmHg, Pain=0, Alireza=10, Marquez=2, Comment=Sinus Tach 02:04 PM Time: 13:49LOC: 5 = Fully awake and oriented or at pre-proc level PM Time: 13:49 Patient comfortable and pain free: Yes PM CZ=492 bpm, QWUU=959/70 mmhg, SpO2=97.0 %, Resp=22 B/min, EtCO2=36 mmHg, Pain=0, Alireza=10, Marquez=2, Comment=Sinus Tach 02:08 PM Time: 14:08 Versed 2 mg Intravenous [facility] PM Time: 14:08 Fentanyl 50 mcg Intravenous Given by Tara Nicolas RNman 02:09 PM WV=447 bpm, NIBP=97/74 mmhg, SpO2=97.0 %, Resp=14 B/min, EtCO2=34 mmHg, Pain=0, Alireza=10, Marquez=2, Comment=Sinus Tach 02:12 PM Pressure channel 1 zeroed. 02:14 PM QZ=529 bpm, NIBP=96/70 mmhg, SpO2=96.0 %, Resp=19 B/min, EtCO2=36 mmHg, Pain=0, Alireza=10, Marquez=2, Comment=Sinus Tach 02:19 PM Time out was performed according to hospital policy. Conscious sedation and anesthesia was achieved (see medication log with in this report above) [facility] Time: 14:04 Patient comfortable and pain free: Yes [facility] PM Time: 14:04LOC: 5 = Fully awake and oriented or at pre-proc level [facility] : PM JS=361 bpm, NIBP=95/70 mmhg, SpO2=96.0 %, Resp=20 B/min, EtCO2=36 mmHg, Pain=0, Alireza=10, Marquez=2, Comment=Sinus Tach 02: PM Time: 14:19 Versed 1 mg Intravenous Given by Tara Nicolas RN [facility] 02:20 PM Time: 14:20 Fentanyl 25 mcg Intravenous Given by Tara Nicolas RN [facility] 02:20 PM Clinical Presentation: Unstable angina [facility] 02:22 PM Time: 14:22 20 ml Lidocaine 2% to right groin Subcutaneous Given by Rene Correa MD, [facility] [email or web address] 02:24 PM Access obtained by percutaneous puncture. 6Fr 10cm Terumo Glidesheath sheath placed in right Femoral artery. [id number] [email or web address] 02:24 PM 0.035 145cm Navilyst 3mmJ wire [id number] [email or web address] 02:24 PM 5Fr FL 4 catheter inserted over the wire [facility] [email or web address] 02:24 PM CZ=041 bpm, NIBP=97/44 mmhg, SpO2=97.0 %, Resp=24 B/min, EtCO2=35 mmHg, Pain=0, Alireza=10, Marquez=2, Comment=Sinus Tach 02:25 PM [ Start or Stop Vital ] 02:26 PM Catheter removed [email or web address] 02:26 PM 5Fr FL 3.5 catheter inserted over the wire [id number] [email or web address] 02:27 PM LCA angiography performed in multiple views. [email or web address] 02:28 PM Recorded Pressure: Ao, ID=[id number], Condition=Condition 1 (Aorta) Ao 89/73/81 02:29 PM Catheter removed [email or web address] 02:29 PM 5Fr FR 4 catheter inserted over the wire DNC [email or web address] 02:29 PM HR=95 bpm, RMYL=480/74 mmhg, SpO2=96.0 %, Resp=19 B/min, EtCO2=37 mmHg, Pain=0, Alireza=10, Marquez=2, Comment=Sinus Tach 02:30 PM RCA angiography performed in multiple views. [email or web address] 02:31 PM Recorded Pressure: Ao, CH=338, Condition=Condition 1 (Aorta) Ao 87/73/80 02:31 PM Catheter removed [email or web address] 02:31 PM 5Fr Pigtail catheter inserted over the wire [facility] [email or web address] 02:32 PM Catheter crossed the aortic valve and was selectively placed in the left ventricle. Pressures recorded on pullback for left heart catheterization. [email or web address] 02:32 PM Bolus angiogram of left Ventricle complete: 12 ml/sec for a total of 20 mls [email or web address] 02:32 PM Recorded Pressure: LV, QQ=928, Condition=Condition 1 (Left Ventricle) LV 51/39/51 02:33 PM Recorded Pressure: LV, CF=896, Condition=Condition 1 (Left Ventricle) LV 83/6/53 02:34 PM MS=469 bpm, EKCF=230/73 mmhg, SpO2=99.0 %, Pain=0, Alireza=10, Marquez=2, Comment=Sinus Tach 02:35 PM Recorded Pressure: LV, BI=307, Condition=Condition 1 (Left Ventricle) LV 94/0/10 02:36 PM Recorded Pressure: LV, Ao, HR=95, Condition=Condition 1 (Left Ventricle) LV 100/-2/10, (Aorta) Ao 86/33/58 02:36 PM Catheter removed [email or web address] 02:37 PM Bolus angiogram of right Femoral complete: 4 ml/sec for a total of 7 mls [email or web address] 02:39 PM Procedure completed at 14:39 04/20/2018 [email or web address] 02:39 PM Did you address DONNA flow and Dominance? Yes [email or web address] 02:39 PM Coronary Dominance: right [email or web address] 02:39 PM HR=97 bpm, DKCF=676/69 mmhg, SpO2=97 %, Resp=22 B/min 02:40 PM Sign out completed: Radiation Dose 126.31 mGy, 1593.52 cGy/cm2 Fluoro Time: 2.1 Isovue 370 - 200ml contrast 61 ml given by Rene Correa MD, [facility]. Complications: None. 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 Cardiac Rehab Consult needed: NoConfirmed administered medications: Yes [email or web address] 02:40 PM Isovue 370 - 200ml,1 Bottle(s) used. [email or web address] 02:40 PM Estimated Blood Loss: less than 20cc [email or web address] 02:41 PM Post Blood Pressure 106/69 [email or web address] 02:41 PM Information taught Cardiac Cath [email or web address] 02:41 PM Education needs Procedure, Plan of Care, and Disease Process [email or web address] 02:41 PM Learning barriers :None [email or web address] 02:44 PM Time: 14:44 Fentanyl 25 mcg Intravenous Given by Rene Correa MD [email or web address] 02:46 PM Arterial sheath pulled using manual compression and V+ Pad for 15 minutes by Sites, Celi RT (R) [email or web address] 02:50 PM Family placed in not available. [email or web address] 02:54 PM Report given to George SOSA Pt taken to 2A Room #72. 14:54 [email or web address] 03:00 PM Site status No bleeding/hematoma - Rt Groin as reported by Sites, Celi RT (R) at 14:59 [email or web address] 03:00 PM Opsite applied [email or web address] 03:00 PM Patient out of room: 15:00 [email or web address] Complications Complication None Hemodynamics Pressures Site Systolic/A Wave Diastolic/V Wave Mean AO 89 73 81 AO 87 73 80 LV 51 39 51 LV 83 6 53 LV 94 0 10 LV 100 -2 10 AO 86 33 58 Post Procedure Information Blood Pressure: 106/69 mmHg Post procedural instructions were given Site Checks Time Location Status Staff Sheath In? Note 02:59 PM Rt Groin No bleeding/hematoma Sites, Celi RT (R) Pulses Time Site Pre-Procedure Post-Procedure Note Bilateral radial 2+ Updated by RT Afsaneh(R) on 04/20/2018 3:00:19 PM electronically signed on 04/20/2018 3:02:19 PM with status of Final
--- NOTE | 2018-04-20 15:09 | Event Note ---
Date of Encounter: 04/20/18 Time of Encounter: 15:08 - Cardiology Event Note C with normal coronaries. Final report pending. EF on LH 20%. 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 Self terminated. Continue ASA, Statin, BB. 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 Coordinate outpt follow-up in 2-3 weeks for CHF/SVT.
[2018-04-20 15:46] LABS: Bilirubin,Urine Negative (Negative); Blood,Urine Large (Negative); Clarity,Urine Clear (Clear); Color,Urine Yellow (Yellow); Glucose,Urine (UA) Normal (Normal); Ketones,Urine Negative (Negative); Leukocyte Esterase,Urine Negative (Negative); Nitrite,Urine Positive (Negative); Protein,Urine Negative (Neg-Trace); Specific Gravity,Urine 1.015 (1.010-1.025); Urobilinogen,Urine Normal (Normal)
[2018-04-20 15:48] LABS: Bacteria,Urine None Seen per hpf (None-Few); Hyaline Casts,Urine None Seen per lpf (None-Few); Squamous Epithelial Cell,Urine Many per lpf (None-Few); WBC,Urine 0-3 per hpf (0-3)
[2018-04-20] MEDS ORDERED: Mirtazapine 15 MG TABLET PO SCH (21:00)
[2018-04-20 22:08] LABS: Adenovirus Not Detected (Not Detect); Bordetella Pertussis Not Detected (Not Detect); Chlamydophila pneumoniae Not Detected (Not Detect); Coronavirus 229E Not Detected (Not Detect); Coronavirus HKU1 Not Detected (Not Detect); Coronavirus NL63 Not Detected (Not Detect); Coronavirus OC43 Not Detected (Not Detect); Human Metapneumovirus Not Detected (Not Detect); Human Rhinovirus/Enterovirus Not Detected (Not Detect); Influenza A Subtype 2009 H1 Not Detected (Not Detect); Influenza A Untypeable Not Detected (Not Detect); Influenza B Not Detected (Not Detect); Mycoplasma pneumoniae Not Detected (Not Detect); Parainfluenza Virus 1 Not Detected (Not Detect); Parainfluenza Virus 2 Not Detected (Not Detect); Parainfluenza Virus 3 Not Detected (Not Detect); Parainfluenza Virus 4 Not Detected (Not Detect); Respiratory Syncytial Virus Not Detected (Not Detect)
[2018-04-20] MEDS ORDERED: diazePAM 10 MG/2 ML SYRINGE IVP ONE (22:33)
[2018-04-21] MEDS: diazePAM 5 MG TABLET PO SCH (00:10)
[2018-04-21] MEDS ORDERED: *HR* OxyCODONE/APAP 5/325 TABLET PO ONE (00:59)
[2018-04-21] MEDS ORDERED: 0.9 % Sodium Chloride 1,000 ML IVC SCH ×2 (01:00)
[2018-04-21] MEDS ORDERED: *HR* LORazepam 2 MG/ML VIAL IVP ONE (01:09)
[2018-04-21] MEDS ORDERED: *HR* LORazepam 2 MG/ML VIAL ONE (01:13)
[2018-04-21 04:30] LABS: Basophils # 0.1 K/mcL (0.0-0.2); Basophils % 0.5 %; Eosinophils # 0.2 K/mcL (0.0-0.6); Eosinophils % 1.4 %; Hematocrit 39.2 % (35.3-44.9); Immature Granulocytes % 0.3 % (0-4); Lymphocytes # 1.8 K/mcL (0.6-4.6); Lymphocytes % 13.7 %; Mean Corpuscular HGB Conc 33.4 g/dL (31.6-35.5); Mean Corpuscular Volume 92.9 fL (83.0-100.0); Mean Platelet Volume 9.2 fL (9.4-12.4); Monocytes # 1.1 K/mcL (0.0-1.3); Monocytes % 8.5 %; Neutrophils # 9.8 K/mcL (1.6-8.9); Platelet Count 222 K/mcL (140-400); Red Blood Count 4.22 M/mcL (3.82-4.97); Red Cell Distribution Width 12.3 % (11.5-14.5); Segmented Neutrophils % 75.6 %
[2018-04-21 04:32] LABS: Hemoglobin 13.1 g/dL (11.5-15.4)
[2018-04-21 04:51] LABS: Alanine Aminotransferase 16 Units/L (7-52); Albumin 3.5 g/dL (3.5-5.7); Albumin/Globulin Ratio 1.5 (1.1-2.2); Alkaline Phosphatase 44 Units/L (34-104); Aspartate Amino Transferase 19 Units/L (13-39); BUN/Creatinine Ratio 20 (6-26); Bilirubin,Total 0.5 mg/dL (0.3-1.0); Blood Urea Nitrogen 12 mg/dL (6-20); Calcium 8.4 mg/dL (8.6-10.3); Carbon Dioxide 25 mEq/L (23-29); Chloride 107 mEq/L (98-107); Chol/HDL Ratio 3.3 (0-4.9); Cholesterol 103 mg/dL (< 200); Globulin 2.3 g/dL (2.4-3.5); Glucose 124 mg/dL (70-105); HDL Cholesterol 31 mg/dL (40-59); LDL Cholesterol,Calculated 54 mg/dL (0-99); Magnesium 1.9 mg/dL (1.6-2.6); Osmolality,Calculated 287 (280-300); Potassium 3.7 mEq/L (3.5-5.1); Sodium 138 mEq/L (136-145); Total Protein 5.8 g/dL (6.4-8.9); Triglycerides 92 mg/dL (< 150); eGFR For Non-African Americans > 60 (> 60)
[2018-04-21] MEDS: *HR* Morphine Soln 10 MG/5 ML UDC PO PRN (05:10)
[2018-04-21 08:08] LABS: Estimated Average Glucose 105 mg/dl; Hemoglobin A1C 5.3 %
[2018-04-21] MEDS ORDERED: Ondansetron 4 MG/2 ML VIAL IVP PRN (08:13)
[2018-04-21] MEDS: Aspirin Enteric Coated 81 MG Tablet PO SCH (08:42)
[2018-04-21] MEDS: Gabapentin 400 MG CAPSULE PO SCH ×2 (08:42→13:19)
[2018-04-21] MEDS: Metoprolol XL (24 HR) Succ 25 MG TAB.ER.24H PO SCH (08:43)
[2018-04-21] MEDS ORDERED: OXYCODONE Oral CONC 10 MG/0.5 ML ORAL.SYG SL ONE (11:04)
[2018-04-21 11:55] VITALS: BP 139/95
--- NOTE | 2018-04-21 13:12 | Discharge Summary ---
<Maikel Adan - Last Filed: 04/21/18 13:10> - NOTES TO OUTPATIENT PROVIDER Notes to Outpatient Provider: Outpatient follow-up in the next 3-4 days with primary care provider for reevaluation. Requested per cardiology for outpatient follow-up in the next 2-3 weeks. Please maintain appointment. Need to have a repeat urinalysis for microscopic hematuria performed outpatient by your primary care provider. Patient started on ASA, statin, BB, and lisinopril per Cardiology recommendations Orders not resulted at time of discharge: Pending orders 04/20/18 06:33 TSH [Thyroid Stimulating Hormone] Routine 04/20/18 10:03 Culture,Blood [BC] Routine 04/20/18 20:09 Culture,Urine [RM] Stat 04/22/18 04:00 Complete Blood Count [HEME] AM 0400 Comprehensive Metabolic Panel AM 0400 04/23/18 04:00 Complete Blood Count [HEME] AM 0400 Comprehensive Metabolic Panel AM 0400 04/24/18 04:00 Complete Blood Count [HEME] AM 0400 Comprehensive Metabolic Panel AM 0400 Date of Encounter: 04/21/18 Time of Encounter: 13:10 - Discharge Diagnosis (1) NSTEMI (non-ST elevated myocardial infarction) Priority: Primary Status: Acute (2) HLD (hyperlipidemia) Priority: Secondary Status: Chronic Qualifiers: Hyperlipidemia type: pure hypercholesterolemia Qualified Code(s): E78.00 - Pure hypercholesterolemia, unspecified; E78.0 - Pure hypercholesterolemia (3) Thyroid disease Priority: Secondary Status: Chronic (4) DVT prophylaxis Priority: Secondary Status: Acute (5) Leukocytosis Priority: Secondary Status: Acute Qualifiers: Leukocytosis type: unspecified Qualified Code(s): D72.829 - Elevated white blood cell count, unspecified Hospital course: Ms. Brewster is a 52 year old female with history of hyperlipidemia who presented to an outside hospital for nausea, vomiting and abdominal pain and on CT scan was found to have ileus without obstruction. Patient immediately and have chest pain with a noted elevated troponin at 0.91 along with borderline EKG changes. Patient was then transferred to [facility] and was seen on inpatient. Patient described a chest pain of pressure-like sensation in the middle of her chest reading into her left arm with associated shortness of breath, fever and chills. Patient denies any vomiting, IV drug use or rashes. Patient is a chronic half pack per day smoker. On admission, patient's troponin slightly decreased at 0.50, and continue to down trend during her hospital stay. Patient was diagnosed with a NSTEMI per cardiology. A CTA of the chest showed no evidence of pulmonary embolism or aortic dissection, however did show bilateral small pleural effusions and subsegmental atelectasis. Patient was found to have elevated white blood cell count on admission at 16, downtrending today to 13. Patient remained afebrile. Respiratory panel was negative. Urinalysis did show positive nitrates and microscopic hematuria as well as large amount of urine blood. Recommended this time for outpatient urinalysis follow-up. Cardiology consult was performed, left heart catheter was performed on 04/20/2018 which showed normal vessels, left ventricular severe abnormal contractility with an EF of 20% as well as an event of SVT that self corrected. Echocardiogram was performed which showed ejection fraction of 30-35% along with global left ventricular systolic dysfunction most prominent in the septal segments. Per cardiology patient was started on lisinopril 2.5 mg per day, patient is to remain on aspirin, statin and beta wilmer. Hemoglobin and hematocrit were sta ble. Patient was found to be hypotensive overnight, following a morphine dose for pain. Blood pressure continue to normalize, at time of discharge patient's blood pressure is normotensive. Due to pain, patient will be discharged with [place] for 3 days, Zofran for nausea as well as aspirin, wilmer and lisinopril prescriptions. Per cardiology, outpatient follow-up is recommended in 2-3 weeks. Primary care follow-up is recommended and discussed with the patient in the next 3-4 days. Return precautions were discussed and she is in understanding. It is recommended that the patient have outpatient urinalysis follow-up, as the patient did have microscopic hematuria, no symptoms. Chronic conditions were managed. Overall, patient states that symptoms have significant improved at time of discharge. Discharge discussed with: patient, family - Time Spent with Patient Total time spent providing and/or coordinating discharge services: Less than 30 minutes - Discharge Medications Prescriptions: Ondansetron ODT [Zofran ODT] 4 mg SL Q6HR 2 Days #8 tab.rubydis Aspirin Enteric Coated [Aspirin EC] 81 mg PO DAILY 14 Days #14 tablet. HYDROcodone/Acet 5/325 mg [[place] 5-325 mg] 1 tab PO Q6H PRN 3 Days #12 tab PRN Reason: Pain Lisinopril [Zestril] 2.5 mg PO DAILY 30 Days #15 tablet Metoprolol XL (24 HR) Succ [Toprol Xl] 25 mg PO DAILY 14 Days #14 tab.er.24h Home Medications: Atorvastatin [Lipitor] 80 mg PO DAILY 04/20/18 [History] Gabapentin [Neurontin] 800 mg PO TID 04/20/18 [History] Levothyroxine [Synthroid] 50 mcg PO 0600 04/20/18 [History] Mirtazapine [Remeron] 30 mg PO HS 04/20/18 [History] diazePAM [Valium] 5 mg PO QID 04/20/18 [History] Aspirin Enteric Coated [Aspirin EC] 81 mg PO DAILY 14 Days #14 tablet. 04/21/18 [Rx] Glatiramer Acetate [Copaxone] 40 mg SQ MOWEFR 04/21/18 [History] HYDROcodone/Acet 5/325 mg [[place] 5-325 mg] 1 tab PO Q6H PRN 3 Days #12 tab 04/21/18 [Rx] Lisinopril [Zestril] 2.5 mg PO DAILY 30 Days #15 tablet 04/21/18 [Rx] Metoprolol XL (24 HR) Succ [Toprol Xl] 25 mg PO DAILY 14 Days #14 tab.er.24h 04/21/18 [Rx] Ondansetron ODT [Zofran ODT] 4 mg SL Q6HR 2 Days #8 tab.rapdis 04/21/18 [Rx] Tizanidine HCl [Zanaflex] 4 mg PO TID PRN 04/21/18 [History] Allergies/Adverse Reactions: Allergy/AdvReac Type Severity Reaction Status Date / Time ondansetron [From Zofran] AdvReac Vomiting Verified 04/21/18 09:52 Date of admission: 04/20/18 15:19 Primary care physician: Marylou Shah CNP Consults: 04/20/18 05:33 Consult to Wildlife Rehabilitator [CONS] Routine Reason for SW Consult: Please assess patient for possible home needs for post-discharge planning. 04/20/18 06:23 Consult to Cardiology [CONS] Routine Comment: Consulting Provider: Cardiology Jerrica Reason for Consult: Patient is transfer from [facility] w/CP that began approx. one week ago. Centralized sharp/stabbing followed by pressure. Initial troponin 0.50. Heparin drip started. Tachycardia w/HR of 115. BP currently 109/77. 80 mg Lipitor and ASA administered. Familial hx of CAD and [place] (mother and father). Call Completed: Yes Discharging clinician: Maikel Adan Anticipated date of discharge: 04/21/18 - Constitutional Vitals: Temp Pulse Resp BP Pulse Ox 99.7 F H 100 18 139/95 97 04/21/18 11:52 04/21/18 11:52 04/21/18 11:52 04/21/18 11:52 04/21/18 11:52 General appearance: Present: cooperative, mild distress (CP), A&O X 3, pleasant, answers questions appropriately Exam: Gen.: Patient is a pleasant female, laying in bed HEENT: Atraumatic, normocephalic, no pallor in the conjunctiva, uvula is midline Chest: regular rhythm regular rhythm, no murmurs gallops or rubs, tenderness to costal cage with palpation Respiratory: Minimal wheezing throughout, no crackles, rhonchi or reveals Abdomen: Abdomen is soft, nontender, no guarding or rebound Extremities: No pitting edema, rash, lesions Neuro: Sensation intact, patient able to move all 4 extremities Psych: Patient appears slightly anxious - Patient Status Disposition: Home, Self-Care Overall status at discharge: patient is progressing back to baseline - Discharge Instructions Instructions: Myocardial Infarction (DC) Follow Up With: Marylou Shah CNP [Primary Care Provider] - 04/27/18 8:40 am Additional Instructions: Outpatient follow-up in the next 3-4 days with primary care provider for reevaluation Requested per cardiology for outpatient follow-up in the next 2-3 weeks. Please maintain appointment Need to have a repeat urinalysis for microscopic hematuria performed outpatient by your primary care provider Please take the medication as prescribed Return precautions as discussed - Diet and Activity Activity: increase activity as tolerated Diet: low fat, low cholesterol, low salt diet <Samantha Masters - Last Filed: 04/21/18 16:23> Orders not resulted at time of discharge: Pending orders 04/20/18 06:33 TSH [Thyroid Stimulating Hormone] Routine 04/20/18 10:03 Culture,Blood [BC] Routine 04/20/18 20:09 Culture,Urine [RM] Stat Date of Encounter: 04/21/18 - Discharge Diagnosis (1) Chest pain Status: Acute Qualifiers: Chest pain type: chest pain due to myocardial ischemia Ischemic chest pain type: unstable angina pectoris Qualified Code(s): I20.0 - Unstable angina (2) Nausea and vomiting Status: Acute Qualifiers: Vomiting type: cyclical vomiting Vomiting Intractability: non-intractable Qualified Code(s): G43.A0 - Cyclical vomiting, not intractable (3) Leukocytosis Status: Acute Qualifiers: Leukocytosis type: unspecified Qualified Code(s): D72.829 - Elevated white blood cell count, unspecified (4) HLD (hyperlipidemia) Status: Chronic Qualifiers: Hyperlipidemia type: pure hypercholesterolemia Qualified Code(s): E78.00 - Pure hypercholesterolemia, unspecified; E78.0 - Pure hypercholesterolemia (5) Thyroid disease Status: Chronic (6) Multiple sclerosis Status: Chronic (7) Neuropathy Status: Chronic (8) Anxiety and depression Status: Chronic (9) DVT prophylaxis Status: Acute (10) SOB (shortness of breath) Status: Acute Hospital course: Ms. Brewster is a 52 year old female - Time Spent with Patient Total time spent providing and/or coordinating discharge services: Date of admission: 04/20/18 15:19 Primary care physician: Marylou Shah CNP Consults: 04/20/18 05:33 Consult to Wildlife Rehabilitator [CONS] Routine Reason for SW Consult: Please assess patient for possible home needs for post-discharge planning. 04/20/18 06:23 Consult to Cardiology [CONS] Routine Comment: Consulting Provider: Cardiology Jerrica Reason for Consult: Patient is transfer from [facility] w/CP that began approx. one week ago. Centralized sharp/stabbing followed by pressure. Initial troponin 0.50. Heparin drip started. Tachycardia w/HR of 115. BP currently 109/77. 80 mg Lipitor and ASA administered. Familial hx of CAD and [place] (mother and father). Call Completed: Yes - Constitutional Vitals: Temp Pulse Resp BP Pulse Ox 99.7 F H 100 18 139/95 97 04/21/18 11:52 04/21/18 11:52 04/21/18 11:52 04/21/18 11:52 04/21/18 11:52 - Attending Attestation I have examined this patient [id number] and my medical decision-making was reviewed with the Resident Physician. I agree with the documented findings, disposition and treatment plan as described except to the extent set forth below. Patient aware of importance, and agrees to, follow-up with primary care physician in 3 days. Cardiology coordinating outpatient follow-up in 2-3 weeks. Patient symptoms improved currently. Likely this was Type II NSTEMI.
[2018-04-22] MEDS ORDERED: *HR* Enoxaparin 40 MG/0.4 ML SYRINGE SQ SCH (06:00)
== END 2018-04-21 14:32 | disposition home or self-care (01) | DRG 281 ==
LOC: 2ANU → SUATTDRO 03:01
PROVIDERS: ADMIT Internal Medicine; ATTEND Student in an Organized Health Care Education/Training Program

== ENCOUNTER 2018-09-12 19:54 | Observation (INO) ==
[2018-09-12] MEDS ORDERED: Aspirin 325 MG TABLET PO ONE (20:27)
[2018-09-12 20:28] LABS: Basophils % 0.4 %; Eosinophils # 0.1 K/mcL (0.0-0.6); Eosinophils % 2.1 %; Hematocrit 36.6 % (35.3-44.9); Hemoglobin 12.1 g/dL (11.5-15.4); Immature Granulocytes % 0.2 % (0-4); Lymphocytes # 1.6 K/mcL (0.6-4.6); Lymphocytes % 31.4 %; Mean Corpuscular HGB Conc 33.1 g/dL (31.6-35.5); Mean Corpuscular Hemoglobin 32.4 pg (28.0-33.3); Mean Corpuscular Volume 97.9 fL (83.0-100.0); Mean Platelet Volume 10.3 fL (9.4-12.4); Monocytes # 0.5 K/mcL (0.0-1.3); Monocytes % 9.6 %; Neutrophils # 2.9 K/mcL (1.6-8.9); Platelet Count 159 K/mcL (140-400); Red Blood Count 3.74 M/mcL (3.82-4.97); Segmented Neutrophils % 56.3 %
--- NOTE | 2018-09-12 20:28 | Emergency Department Note ---
Disposition Clinical Impression: Chest pain Qualifiers: Chest pain type: unspecified Qualified Code(s): R07.9 - Chest pain, unspecified Disposition: Still a Patient Referrals: NONE,PCP [Primary Care Provider] - General Adult HPI - General Chief complaint: ED Chest Pain Stated complaint: my heart Time Seen by Provider: 09/12/18 20:00 Source: patient, family Limitations: no limitations Nursing Notes Reviewed: Yes Vital Signs Reviewed: Yes - History of Present Illness HPI Narrative: ED ATTESTATION NOTE: I examined this patient and my medical decision-making was reviewed with the Resident Physician/VISCOSE CELLAR WORKER/PA/Student. I have personally performed a face to face evaluation on this patient & I agree with the documented findings, disposition and treatment plan as described except to the extent set forth below. Patient was seen with emergency medicine resident Dr. Darrius Leyva please see copy of his note for details of this encounter Briefly: 21-year-old female smoker history of PR had a cardiac catheter done April 2018 which showed no vessel disease but over 20% ejection fraction. Patient gives history of exertional angina EKG shows no acute ischemic changes heart scores for. Plan is chest x-ray troponin screening labs and give her an aspirin change in intake today admission is anticipated disposition pending Pain Scale: 7 - Related Data Home Medications Medication Instructions Recorded Confirmed Atorvastatin [Lipitor] 80 mg PO DAILY 04/20/18 04/20/18 Gabapentin [Neurontin] 800 mg PO TID 04/20/18 04/20/18 Levothyroxine [Synthroid] 50 mcg PO 0600 04/20/18 04/20/18 Mirtazapine [Remeron] 30 mg PO HS 04/20/18 04/20/18 diazePAM [Valium] 5 mg PO QID 04/20/18 04/20/18 Glatiramer Acetate [Copaxone] 40 mg SQ MOWEFR 04/21/18 04/21/18 Tizanidine HCl [Zanaflex] 4 mg PO TID PRN 04/21/18 04/21/18 Allergies Allergy/AdvReac Type Severity Reaction Status Date / Time ondansetron [From Zofran] AdvReac Vomiting Verified 08/18/18 14:11 Past Medical History - Past Medical History Medical history: Reports: cancer, hyperlipidemia, thyroid disease, other Surgical history: Reports: hysterectomy, breast surgery Psychiatric history: Reports: anxiety, depression - Social History Smoking Status: Current every day smoker Smokeless Tobacco Status: No Alcohol use: Reports: none Drug use: Reports: none Physical Exam - General Limitations: no limitations General appearance: alert, in no apparent distress Course Vital Signs Temperature 98.7 F 09/12/18 20:00 Pulse Rate 102 09/12/18 20:00 Respiratory Rate 20 09/12/18 20:00 Blood Pressure 132/103 09/12/18 20:00 O2 Sat by Pulse Oximetry 98 09/12/18 20:00 Temperature 98.7 F 09/12/18 20:00 Pulse Rate 102 09/12/18 20:00 Respiratory Rate 20 09/12/18 20:00 Blood Pressure 132/103 09/12/18 20:00 O2 Sat by Pulse Oximetry 98 09/12/18 20:00 Oxygen Delivery Oxygen Delivery Room Air
--- NOTE | 2018-09-12 20:32 | Emergency Department Note ---
Disposition Clinical Impression: Chest pain Qualifiers: Chest pain type: unspecified Qualified Code(s): R07.9 - Chest pain, unspecified Disposition: Admitted As Inpatient Condition: Good Referrals: NONE,PCP [Non-Partnered Physician] - Forms: ED Satisfaction Letter Time of Disposition: 21:13 Chest Pain HPI - General Chief Complaint: ED Chest Pain Stated Complaint: my heart Time Seen by Provider: 09/12/18 20:00 Source: patient, family (Cousin) Mode of arrival: ambulatory Limitations: no limitations Vital Signs Reviewed: Yes Nursing Notes Reviewed: Yes - History of Present Illness HPI Narrative: 52-year-old female history of tobacco abuse, MS, CAD, congestive heart failure presents emergency department with chest pain. States for the past 5 days sees had intermittent exertional chest pain. She is currently in the process of moving out of her house. She currently is not experiencing any chest pain now. She reports a sore taking feeling of her left chest wall which she describes as her heart. Last night was the most severe lasted several hours. There was radiation to the left arm. She get short of breath and diaphoretic. She denies any recent illnesses such as fever or cough. She reports recent admission for cardiac issues where she had her diagnosis of heart failure. States this feels worse. She has a family history of cardiac disease. She denies any recent long-distance travel, hormone replacement or history of blood clots. Also complaining of back pain which she describes as lower back with hematuria for the past month. She does not report a history of kidney stones. She does report some dysuria. She does have a history of urinary tract infections and states this feels slightly different. Denies any vaginal discharge. Pt complaint: chest pain Severity scale (1-10): 7 - Related Data Home Medications Medication Instructions Recorded Confirmed Atorvastatin [Lipitor] 80 mg PO DAILY 04/20/18 04/20/18 Gabapentin [Neurontin] 800 mg PO TID 04/20/18 04/20/18 Levothyroxine [Synthroid] 50 mcg PO 0600 04/20/18 04/20/18 Mirtazapine [Remeron] 30 mg PO HS 04/20/18 04/20/18 diazePAM [Valium] 5 mg PO QID 04/20/18 04/20/18 Glatiramer Acetate [Copaxone] 40 mg SQ MOWEFR 04/21/18 04/21/18 Tizanidine HCl [Zanaflex] 4 mg PO TID PRN 04/21/18 04/21/18 Allergies Allergy/AdvReac Type Severity Reaction Status Date / Time ondansetron [From Zofran] AdvReac Vomiting Verified 08/18/18 14:11 All systems ED: reviewed and negative except as stated. Review of Systems: As Per HPI Constitutional: Reports: chills. Denies: fever ENT ED: Denies: congestion Cardiovascular: Reports: chest pain, palpitations, dyspnea on exertion. Denies: syncope Respiratory: Denies: cough, dyspnea Gastrointestinal: Denies: abdominal pain, nausea, vomiting Genitourinary: Reports: dysuria, hematuria Musculoskeletal: Reports: back pain. Denies: neck pain Neurological: Denies: headache, weakness, numbness Chest Pain PMH - Past Medical History Medical history: Reports: cancer, CHF, hyperlipidemia, myocardial infarction, thyroid disease, other (Multiple sclerosis) Surgical history: Reports: hysterectomy, breast surgery Psychiatric history: Reports: anxiety, depression - Social History Smoking Status: Current every day smoker Alcohol use: Reports: none Drug use: Reports: none Physical Exam - General Limitations: no limitations General appearance: alert, in no apparent distress, anxious - Head Head exam: atraumatic, normocephalic, normal inspection - Eye Eye exam: Present: normal appearance, EOMI - ENT ENT exam: normal exam, normal oropharynx, mucous membranes moist - Neck Neck exam: Present: normal inspection, full ROM, trachea midline - Chest Chest inspection: Present: normal inspection, symmetric chest wall rise. Absent: tenderness - Respiratory Respiratory exam: Present: normal lung sounds bilaterally. Absent: respiratory distress, wheezes - Cardiovascular Cardiovascular exam: Present: regular rate, normal rhythm, normal heart sounds - Expanded Cardiovascular Exam Peripheral pulses: 2+: radial (R), radial (L) - Abdominal Exam Abdominal exam: Present: soft, Non-Tender, normal bowel sounds. Absent: tenderness, distention, guarding, rebound, rigidity - Extremities Exam Extremities exam: Present: normal inspection, full ROM, normal capillary refill. Absent: tenderness, pedal edema, calf tenderness - Back Exam Back exam: Present: normal inspection, full ROM, paraspinal tenderness (Lower lumbar). Absent: tenderness, vertebral tenderness - Neurological Exam Neurological exam: Present: alert, oriented X3 - Psychiatric Psychiatric exam: Present: normal affect, anxious. Absent: depressed - Skin Skin exam: Present: warm, dry, intact, normal color. Absent: rash, cyanosis, diaphoresis Course Course Narrative: Patient reports of chest pain on exertion. She has a history of reported coronary arterial disease with heart failure. States this is different. Her back pain is in her lower back with urinary symptoms. Chest pain workup initiated. Aspirin given here. She is not in any distress and denies any chest pain at this time. - Reevaluation(s) Reevaluation #1: Troponin less than 0.03. Her heart scores 4. Given her change in chest pain symptoms recommendation for admission and further evaluation. Patient is agreeable to this plan. - Consultations Consultation #1: Spoke with on-call hospitalist brent Wylie to admit for CHEST PAIN. Will replete her potassium Time: 21:12 Vital Signs Temperature 98.7 F 09/12/18 20:00 Pulse Rate 102 09/12/18 20:00 Respiratory Rate 20 09/12/18 20:00 Blood Pressure 132/103 09/12/18 20:00 O2 Sat by Pulse Oximetry 98 09/12/18 20:00 Temperature 98.7 F 09/12/18 20:00 Pulse Rate 102 09/12/18 20:00 Respiratory Rate 20 09/12/18 20:00 Blood Pressure 132/103 09/12/18 20:00 O2 Sat by Pulse Oximetry 98 09/12/18 20:00 Oxygen Delivery Oxygen Delivery Room Air Chest Pain - MDM Narrative Medical decision making narrative: Patient was discussed with my attending physician who agrees with ED management and final disposition. They independently evaluated the patient. Please refer to their attestation to this encounter for additional information. This note was generated by [employer] voice recognition software and as a result grammatical or spelling errors may occur using this program. - Medical Records Medical records reviewed: Yes I reviewed the patient's medical records. - Lab Data Lab results reviewed: Yes I reviewed the patient's lab results. Result diagrams: 09/12/18 20:14 09/12/18 20:14 Lab Results 09/12/18 09/12/18 Range/Units 20:14 20:14 WBC 5.1 (4.3-11.1) K/mcL RBC 3.74 L (3.82-4.97) M/mcL Hgb 12.1 (11.5-15.4) g/dL Hct 36.6 (35.3-44.9) % MCV 97.9 (83.0-100.0) fL MCH 32.4 (28.0-33.3) pg MCHC 33.1 (31.6-35.5) g/dL RDW 16.0 H (11.5-14.5) % Plt Count 159 (140-400) K/mcL MPV 10.3 (9.4-12.4) fL Immature Gran % 0.2 (0-4) % Seg Neutrophils % 56.3 % Lymphocytes % 31.4 % Monocytes % 9.6 % Eosinophils % 2.1 % Basophils % 0.4 % Neutrophils # 2.9 (1.6-8.9) K/mcL Lymphocytes # 1.6 (0.6-4.6) K/mcL Monocytes # 0.5 (0.0-1.3) K/mcL Eosinophils # 0.1 (0.0-0.6) K/mcL Basophils # 0.0 (0.0-0.2) K/mcL Sodium 138 (136-145) mEq/L Potassium 3.2 L (3.5-5.1) mEq/L Chloride 106 (98-107) mEq/L Carbon Dioxide 24 (23-29) mEq/L BUN 4 L (6-20) mg/dL Creatinine 0.43 L (0.60-1.20) mg/dL Est GFR ( Amer) > 60 (> 60) Est GFR (Non-Af Amer) > 60 (> 60) BUN/Creatinine Ratio 9 (6-26) Glucose 96 (70-105) mg/dL Calculated Osmolality 283 (280-300) Calcium 9.1 (8.6-10.3) mg/dL Troponin I < 0.03 (< 0.04) ng/mL - Radiology Data Radiology results reviewed: Yes I reviewed the patient's radiology results. Chest X-Ray 09/12/18 20:04 IMPRESSION: No acute pulmonary process. D/ / Donte Little MD / Donte Little MD Interpreting Provider: Donte Little MD - EKG Data EKG attestation: Yes I reviewed and interpreted this EKG. EKG results narrative: EKG performed 2007 sinus tachycardia 102 beats per minute, normal axis, good R wave progression, no ST elevation or depression, intervals within normal limits. Compared to prior EKG performed 04/20/2018 with similar consistent findings. No acute ischemic changes. Heart Score - Score History: Moderately Suspicious EKG: Normal Age: 45-65 Risk Factors: Equal/Greater than 3 risk factor or history of atherosclerotic disease Troponin: Less than normal limit HEART Score Total: 4
[2018-09-12 20:46] LABS: BUN/Creatinine Ratio 9 (6-26); Blood Urea Nitrogen 4 mg/dL (6-20); Calcium 9.1 mg/dL (8.6-10.3); Carbon Dioxide 24 mEq/L (23-29); Chloride 106 mEq/L (98-107); Glucose 96 mg/dL (70-105); Osmolality,Calculated 283 (280-300); Potassium 3.2 mEq/L (3.5-5.1); Sodium 138 mEq/L (136-145); Troponin I < 0.03 ng/mL (< 0.04); eGFR For Non-African Americans > 60 (> 60)
[2018-09-12 21:23] LABS: Bilirubin,Urine Negative (Negative); Blood,Urine Negative (Negative); Clarity,Urine Cloudy (Clear); Color,Urine Dark Yellow (Yellow); Glucose,Urine (UA) Normal (Normal); Ketones,Urine Negative (Negative); Leukocyte Esterase,Urine Small (Negative); Nitrite,Urine Negative (Negative); PH,Urine 6.5 pH Units (5.0-8.0); Protein,Urine Negative (Neg-Trace); Specific Gravity,Urine 1.016 (1.010-1.025); Urobilinogen,Urine Normal (Normal)
[2018-09-12 21:28] LABS: Bacteria,Urine None Seen per hpf (None-Few); Hyaline Casts,Urine None Seen per lpf (None-Few); RBC,Urine 0-3 per hpf (0-3); Squamous Epithelial Cell,Urine Many per lpf (None-Few)
[2018-09-12] MEDS ORDERED: (Glatiramer Acetate [Copaxone] 40 MG) SQ SCH (23:00)
[2018-09-12] MEDS ORDERED: ALPRAZolam 0.25 MG TABLET PO PRN (23:37)
[2018-09-12] MEDS ORDERED: tiZANidine 4 MG TABLET PO PRN (23:42)
[2018-09-12] MEDS ORDERED: Naloxone 0.4 MG/ML INJ IVP PRN (23:52)
--- NOTE | 2018-09-13 00:11 | Internal Med History&Physical ---
Date of Encounter: 09/12/18 Time of Encounter: 23:00 Internal Medicine - H&P: HPI Chief complaint: chest pain Admitted From: Home Plans for Post Hospital Care: Home History of present illness: Katie Brewster is a 52 year old woman active smoker with anxiety disorder, multiple sclerosis, hyperlipidemia and HFrEF who underwent cardiac cath in April 2018 after presenting for NSTEMI but found to have normal coronaries. She presents to the ER complaining of increasing exertional chest pain that is now developing radiation to her left arm. She also gets short of breath and diaphoretic with these episodes. She reports that it feels bad because of her anxiety issues and has been undergoing emotional stress as she recently broke up with her fiance. She complains of pain also in the rest of her body including back, legs and knees however. She also complains of significant dysuria stating that she feels she may have caught something from her fiances infidelity. Lab work was grossly unremarkable except a K of 3.2 and was given 40mEq KCL supplementation. EKG as reviewed by me shows ST depressions in the inferior leads but is unchanged from her prior EKG of 5 months ago. She is admitted for observation. Vitals: Reviewed General: NAD Skin: Warm, dry. HEENT: Moist mucous membranes. No conjunctivae pallor. Neck: No lymphadenopathy. No JVD. No carotid bruits. No palpable thyroid. Chest: Normal thoracic expansion. Normal breath sounds. Clear to auscultation. Heart: Normal S1 & S2; rhythmic. No rubs or murmurs. Abdomen: Non-distended, soft and non-tender to palpation. No peritoneal react ion. Extremities: No clubbing, cyanosis or edema. No calf tenderness. Normal distal pulses. Neurological: Awake, alert and oriented to person, place and time. No focal deficits. Psych: Affect appropriate. Assessment/Plan 1. Chest pain: Unclear if this is part of her diffuse body ache musculoskeletal pains, her anxiety disorder precipitating the chest discomfort or if this is indeed cardiac in origin. She underwent a cath less than 5 months ago with angiographically normal coronaries so it would be odd to now have occlusive disease. Will continue daily aspirin and high intensity statin. Monitor on telemetry. Trend troponins. 2. Dysuria: The urine specimen obtained in the ER does not suggest infection however it equally appears to be a contaminated specimen therefore will repeat. Will also check urine gonorrhea/chlamydia. 3. Hypokalemia: Supplemented. Will also check Mg. 4. Multiple sclerosis: Continue glatiramer acetate. 5. Tobacco use: Smoking cessation counseling given. Past Med Surg Social Fam HX - Past Medical History Medical history: cancer, CHF, hyperlipidemia, migraine, myocardial infarction, thyroid disease Additional medical history: breast cancer, MRSA, hypothyroidism, multiple sclerosis Psychiatric history: anxiety, depression, PTSD, other - Past Surgical History Surgical History: hysterectomy, knee replacement Additional surgical history: bilateral mastectomy, bilteral total knee replacements, one ovary removed, - Social History Smoking Status: Current every day smoker Packs per day: 1/2 Smokeless Tobacco Status: No Alcohol use: none Drug use: marijuana - Family History Mother Family Member Ethnicity: Non- Living Status: Age at : 73 Cause of : Acute myeloid leukemia Hx Family Cardiac Disorders: Yes (4-5 cardiac stents) Hx Family Cancer: Yes (Breast) Hx Family Autoimmune Disorders: Yes (lupus) Father Family Member Ethnicity: Non- Living Status: Still Living Hx Family Cardiac Disorders: Yes ("Weak heart", HTN) Hx Family Endocrine Disorder: Yes (DM) Hx Family Neurologic Disorders: Yes (CVA) Brother Family Member Ethnicity: Non- Living Status: Still Living Sister Family Member Ethnicity: Non- Living Status: Still Living Internal Medicine - H&P: Meds Atorvastatin [Lipitor] 80 mg PO DAILY 04/20/18 [History] Gabapentin [Neurontin] 800 mg PO TID 04/20/18 [History] Levothyroxine [Synthroid] 50 mcg PO 0600 04/20/18 [History] Mirtazapine [Remeron] 30 mg PO HS 04/20/18 [History] diazePAM [Valium] 5 mg PO QID 04/20/18 [History] Glatiramer Acetate [Copaxone] 40 mg SQ MOWEFR 04/21/18 [History] Tizanidine HCl [Zanaflex] 4 mg PO TID PRN 04/21/18 [History] Allergy/AdvReac Type Severity Reaction Status Date / Time morphine Allergy Hives Verified 09/12/18 22:39 ondansetron [From Zofran] AdvReac Vomiting Verified 08/18/18 14:11 All Systems PM: A 10-system review of systems was performed and is negative for pertinent findings except as documented above in the HPI. - Constitutional Vitals: Temp Pulse Resp BP Pulse Ox 98.7 F 86 14 110/75 97 09/12/18 22:20 09/12/18 22:20 09/12/18 22:20 09/12/18 22:20 09/12/18 22:20 Exam: . Internal Med - H&P Results - Labs CBC & Chem 7: 09/12/18 20:14 09/12/18 20:14 Labs: Short CBC 09/12/18 Range/Units 20:14 WBC 5.1 (4.3-11.1) K/mcL Hgb 12.1 (11.5-15.4) g/dL Hct 36.6 (35.3-44.9) % Plt Count 159 (140-400) K/mcL Neutrophils # 2.9 (1.6-8.9) K/mcL BMP 09/12/18 20:14 Sodium 138 Potassium 3.2 L Chloride 106 Carbon Dioxide 24 BUN 4 L Creatinine 0.43 L Glucose 96 Calcium 9.1 Cardiac Enzymes 09/12/18 Range/Units 20:14 Troponin I < 0.03 (< 0.04) ng/mL Urine 09/12/18 Range/Units 21:10 Urine Color Dark Yellow (Yellow) Urine Clarity Cloudy A (Clear) Urine pH 6.5 (5.0-8.0) pH Units Ur Specific [place] 1.016 (1.010-1.025) Urine Protein Negative (Neg-Trace) mg/dL Urine Glucose (UA) Normal (Normal) mg/dL - Impressions ITS Impressions Chest X-Ray 09/12/18 20:04 IMPRESSION: No acute pulmonary process. D/ / Donte Little MD / Donte Little MD Interpreting Provider: Donte Little MD - Time Spent With Patient Total time spent is greater than 50% in coordination of care (as documented) at patient's floor/unit and/or counseling patient: Greater than 35 minutes
[2018-09-13] MEDS ORDERED: Acetaminophen 325 MG TABLET PO PRN (00:27)
[2018-09-13] MEDS ORDERED: *HR* OxyCODONE Immed Rel 5 MG TABLET PO PRN (00:28)
[2018-09-13] MEDS ORDERED: traMADol 50 MG TABLET PO PRN (00:29)
[2018-09-13 04:21] LABS: INR 1.2; Prothrombin Time 13.1 Seconds (9.4-12.1)
[2018-09-13 04:23] LABS: Activated Partial Thrombo Time 29.6 Seconds (26.0-36.0)
[2018-09-13 04:46] LABS: Bilirubin,Urine Negative (Negative); Blood,Urine Negative (Negative); Clarity,Urine Cloudy (Clear); Color,Urine Dark Yellow (Yellow); Glucose,Urine (UA) Normal (Normal); Ketones,Urine Negative (Negative); Leukocyte Esterase,Urine Trace (Negative); Nitrite,Urine Negative (Negative); Protein,Urine Negative (Neg-Trace); Specific Gravity,Urine 1.007 (1.010-1.025)
[2018-09-13 04:49] LABS: Bacteria,Urine None Seen per hpf (None-Few); Hyaline Casts,Urine None Seen per lpf (None-Few); RBC,Urine 0-3 per hpf (0-3); Squamous Epithelial Cell,Urine Many per lpf (None-Few)
[2018-09-13] MEDS ORDERED: *HR* Heparin 5,000 UNIT/ML VIAL SQ SCH (06:00)
[2018-09-13 06:14] LABS: Chlamydia Trachomatis DNA Ur NOT DETECTED (Not Detect)
[2018-09-13 08:48] LABS: Magnesium 1.8 mg/dL (1.6-2.6)
[2018-09-13] MEDS ORDERED: Aspirin 81 MG TAB.CHEW PO SCH (09:00)
[2018-09-13] MEDS: Gabapentin 400 MG CAPSULE PO SCH ×2 (10:30→17:34)
[2018-09-13] MEDS ORDERED: Potassium Chloride 40 MEQ, Lidocaine 1% 2 ML in D5% in Water 500 ML IVPB ONE (10:44)
[2018-09-13 11:18] VITALS: BP 111/75
--- NOTE | 2018-09-13 11:21 | Internal Med Progress Note ---
Hospitalist Progress Note - Encounter Date of Encounter: 09/13/18 Time of Encounter: 11:10 - Subjective Interval History: Katie Brewster is a 52 year old woman active smoker with anxiety disorder, active smoker, multiple sclerosis, hyperlipidemia and HFrEF who underwent cardiac cath in April 2018 after presenting for NSTEMI but found to have normal coronaries presents to ER with worsening exertional chest pain radiating to her left arm, accompanied by nausea. Admits to recent stress and worsening anxiety. Denies any SOB. Denies any recent illness, but complaints of dysuria without hematuria. Lab work was grossly unremarkable except a K of 3.2 and was given 40mEq KCL supplementation at ED. EKG without acute changes. troponin negative x 3. She was admitted in April 2018 for NSTEMI, echo demonstrated decreased LVEF. Cardiology recommended pharmacologic management with metoprolol, lisinopril, ASA, atorvastatin. Patient reports that she has she has been compliant. She has progressively returned to her baseline. Patient home medications include ASA, metoprolol, lisinopril, lipitor. She also has CHF, not on lasix. Her legs a re chronically swollen. Will start lasix 20mg prn. She has not seen cardiology since April 2018, will have her follow up outpatient for her CHF. For her MS, we will schedule follow up with neurology. Educated her on smoking cessation and patient willing to trial nicoderm. Will prescribe and have her follow up with PCP for her chronic conditions. - Exam Vitals: Temp Pulse Resp BP Pulse Ox 98.4 F 83 17 103/66 97 09/13/18 08:00 09/13/18 08:00 09/13/18 08:00 09/13/18 08:00 09/13/18 04:02 Exam: Vitals: Reviewed General: NAD Skin: Warm, dry. HEENT: Moist mucous membranes. No conjunctivae pallor. Neck: No lymphadenopathy. No JVD. No carotid bruits. No palpable thyroid. Chest: Normal thoracic expansion. Normal breath sounds. Clear to auscultation. Heart: Normal S1 & S2; rhythmic. No rubs or murmurs. Abdomen: Non-distended, soft and non-tender to palpation. No peritoneal janet ction. Extremities: No clubbing, cyanosis or edema. No calf tenderness. Normal distal pulses. Neurological: Awake, alert and oriented to person, place and time. No focal deficits. Psych: Affect appropriate. - Assessment and Plan (1) Chest pain Current Visit: Yes Status: Acute Assessment and Plan: PMHx anxiety, MS, hyperlipidemia, HFrEF with cardiac cath in April 2018 pre sents with worsening exertional chest pain. HEART score 4 On April 2019, Echo with LVEF 35%, global left ventricular systolic dysfunction, most prominent in the septal segments and hypokinetic wall movements. LHC demonstrated EF 20% with severely abnormal contractility and episode of SVT. She has been on CHF/SVT with cardiology since then. Now on lisinopril 2.5mg, ASA, statin, BB. (2) Anxiety and depression Current Visit: No Status: Chronic (3) Multiple sclerosis Current Visit: No Status: Chronic (4) Thyroid disease Current Visit: No Status: Chronic - Time Spent with Patient Total time spent is greater than 50% in coordination of care (as documented) at patient's floor/unit and/or counseling patient: Internal Medicine: Result - Labs CBC & Chem 7: 09/12/18 20:14 09/12/18 20:14 Labs: Short CBC 09/12/18 Range/Units 20:14 WBC 5.1 (4.3-11.1) K/mcL Hgb 12.1 (11.5-15.4) g/dL Hct 36.6 (35.3-44.9) % Plt Count 159 (140-400) K/mcL Neutrophils # 2.9 (1.6-8.9) K/mcL BMP 09/12/18 20:14 Sodium 138 Potassium 3.2 L Chloride 106 Carbon Dioxide 24 BUN 4 L Creatinine 0.43 L Glucose 96 Calcium 9.1 Cardiac Enzymes 09/12/18 09/13/18 09/13/18 Range/Units 20:14 04:00 07:48 Troponin I < 0.03 < 0.03 < 0.03 (< 0.04) ng/mL Urine 09/12/18 09/13/18 Range/Units 21:10 04:08 Urine Color Dark Yellow Dark Yellow (Yellow) Urine Clarity Cloudy A Cloudy A (Clear) Urine pH 6.5 6.0 (5.0-8.0) pH Units Ur Specific [place] 1.016 1.007 L (1.010-1.025) Urine Protein Negative Negative (Neg-Trace) mg/dL Urine Glucose (UA) Normal Normal (Normal) mg/dL - ABG Interpretation ABG results: PT/INR, D-dimer PT 13.1 Seconds (9.4-12.1) H 09/13/18 04:00 - Impressions Impressions Chest X-Ray 09/12/18 20:04 IMPRESSION: No acute pulmonary process. D/ / Donte Little MD / Donte Little MD Interpreting Provider: Donte Little MD Consult Discharge Plan - Plan Referrals: Marylou Shah, SENIOR ACCOUNTANT ANALYST [Primary Care Provider] - (1) Chest pain Qualifiers: Chest pain type: unspecified Qualified Code(s): R07.9 - Chest pain, unspecified
--- NOTE | 2018-09-13 12:15 | Discharge Summary ---
<Alejandro Jorge - Last Filed: 09/13/18 12:12> - NOTES TO OUTPATIENT PROVIDER Notes to Outpatient Provider: Added Lasix 20mg prn at night, nicoderm. Follow up with cardiology for CHF, neurologist for MS Date of Encounter: 09/13/18 Time of Encounter: 12:12 - Discharge Diagnosis (1) Chest pain Priority: Primary Status: Acute Qualifiers: Chest pain type: unspecified Qualified Code(s): R07.9 - Chest pain, unspecified (2) Anxiety and depression Priority: Secondary Status: Chronic (3) Multiple sclerosis Priority: Secondary Status: Chronic (4) Thyroid disease Priority: Secondary Status: Chronic Hospital course: Katie Brewster is a 52 year old woman active smoker with anxiety disorder, active smoker, multiple sclerosis, hyperlipidemia and HFrEF who underwent cardiac cath in April 2018 after presenting for NSTEMI but found to have normal coronaries presents to ER with worsening exertional chest pain radiating to her left arm, accompanied by nausea. Admits to recent stress and worsening anxiety. Denies any SOB. Denies any recent illness, but complaints of dysuria without hematuria. Lab work was grossly unremarkable except a K of 3.2 and was given 40mEq KCL supplementation at ED. EKG without acute changes. troponin negative x 3. She was admitted in April 2018 for NSTEMI, echo demonstrated decreased LVEF. Cardiology recommended pharmacologic management with metoprolol, lisinopril, ASA, atorvastatin. Patient reports that she has she has been compliant. She has progressively returned to her baseline. Patient is on appropriate medications including ASA, metoprolol, lisinopril, lipitor. She also has CHF, not on lasix. Her legs are chronically swollen. Will start lasix 20mg prn. She has not seen cardiology since April 2018, will have her follow up outpatient for her CHF. Continue with home medications. For her MS, we will schedule follow up with neurology. Educated her on smoking cessation and patient willing to trial nicoderm. Will prescribe and have her follow up with PCP for her chronic conditions. Discharge discussed with: patient Time spent discussing smoking cessation with patient: more than 10 minutes - Time Spent with Patient Total time spent providing and/or coordinating discharge services: Time spent: Greater than 30 minutes - Discharge Medications Prescriptions: New Furosemide [Lasix] 20 mg PO PRN PRN #20 tablet PRN Reason: Dyspnea Nicotine Patch [Nicoderm] 21 mg TD DAILY 30 Days patch.[id number] Continued Levothyroxine [Synthroid] 50 mcg PO QAM Gabapentin [Neurontin] 800 mg PO TID diazePAM [Valium] 5 mg PO QID Glatiramer Acetate [Copaxone] 40 mg SQ MOWEFR Atorvastatin Calcium [Lipitor] 80 mg PO DAILY Lisinopril 2.5 mg PO DAILY Metoprolol Succinate [Toprol Xl] 25 mg PO DAILY Mirtazapine [Remeron] 30 mg PO HS Tizanidine HCl 4 mg PO BID PRN PRN Reason: Muscle Spasm Aspirin [Adult Aspirin Regimen] 81 mg PO DAILY Divalproex (24 HR) [Depakote ER (24 HR)] 1,000 mg PO HS Home Medications: Gabapentin [Neurontin] 800 mg PO TID 04/20/18 [History] Levothyroxine [Synthroid] 50 mcg PO QAM 04/20/18 [History] diazePAM [Valium] 5 mg PO QID 04/20/18 [History] Glatiramer Acetate [Copaxone] 40 mg SQ MOWEFR 04/21/18 [History] Aspirin [Adult Aspirin Regimen] 81 mg PO DAILY 09/13/18 [History] Atorvastatin Calcium [Lipitor] 80 mg PO DAILY 09/13/18 [History] Divalproex (24 HR) [Depakote ER (24 HR)] 1,000 mg PO HS 09/13/18 [History] Furosemide [Lasix] 20 mg PO PRN PRN #20 tablet 09/13/18 [Rx] Lisinopril 2.5 mg PO DAILY 09/13/18 [History] Metoprolol Succinate [Toprol Xl] 25 mg PO DAILY 09/13/18 [History] Mirtazapine [Remeron] 30 mg PO HS 09/13/18 [History] Nicotine Patch [Nicoderm] 21 mg TD DAILY 30 Days patch.td24 09/13/18 [Rx] Tizanidine HCl 4 mg PO BID PRN 09/13/18 [History] Allergies/Adverse Reactions: Allergy/AdvReac Type Severity Reaction Status Date / Time morphine Allergy Vomiting Verified 09/13/18 10:52 ondansetron [From Zofran] AdvReac Vomiting Verified 09/13/18 10:52 Date of admission: 09/12/18 21:42 Primary care physician: Marylou Shah CNP Discharging clinician: Alejandro Jorge Anticipated date of discharge: 09/13/18 - Constitutional Vitals: Temp Pulse Resp BP Pulse Ox 97.5 F L 88 17 111/75 97 09/13/18 11:13 09/13/18 11:13 09/13/18 11:13 09/13/18 11:13 09/13/18 11:13 General appearance: Present: A&O X 3 Exam: . - Head Head exam: Present: atraumatic, normocephalic - Eye Eye exam: Present: PERRL, conjuntiva pink, sclera anicteric Pupils: Present: PERRL - Neck Neck exam general surgery: Present: supple, trachea midline. Absent: lymphadenopathy - Respiratory Respiratory exam: Present: CTAB. Absent: accessory muscle use, rales, rhonchi, wheezes - Cardiovascular Cardiovascular exam: Present: RRR, +S1, +S2. Absent: diastolic murmur, gallop, rubs, systolic murmur - GI/Abdominal GI/Abdominal exam: Present: normal bowel sounds, soft, no peritoneal signs. Absent: distended, tenderness - Extremities Exam Extremities exam: Present: warm, radial pulses palpable and symmetrical. Absent: calf tenderness, cyanotic, pedal edema - Neurological Exam Neurological exam: Present: CN II-XII intact, oriented X3, no focal deficits. Absent: pronater drift, facial droop, speech deficit - Skin Skin exam: Present: dry, intact - Patient Status Disposition: Home, Self-Care Condition: Good Functional capacity at discharge: independent ambulation Overall status at discharge: patient is back to baseline - Discharge Instructions Instructions: Furosemide (By mouth), Nicotine (Absorbed through the skin), Chest Pain (DC) Follow Up With: [facility] [Provider Group] (We have requested a follow up appointment with [facility]. The office will call you at home with an appointment date and time. ) Neurology [facility] [Provider Group] (We have requested a follow up appointment with [facility]. The office will call you at home with an appointment date and time. ) Marylou Shah CNP [Primary Care Provider] - 09/23/18 12:00 pm Additional Instructions: Continue your aspirin, metoprolol, lisinopril, lipitor and follow up with your heart doctor. For your multiple sclerosis, follow up with neurologist for medication refill. Return to ED if symptoms worsen. <Britton Gilman - Last Filed: 09/13/18 15:44> Date of Encounter: 09/13/18 Hospital course: Ms. Brewster is a 52 year old female - Time Spent with Patient Total time spent providing and/or coordinating discharge services: Date of admission: 09/12/18 21:42 Primary care physician: Marylou Shah CNP - Constitutional Vitals: Temp Pulse Resp BP Pulse Ox 97.5 F L 88 17 111/75 97 09/13/18 11:13 09/13/18 11:13 09/13/18 11:13 09/13/18 11:13 09/13/18 11:13 - Attending Attestation I examined this patient and my medical decision-making was reviewed with the Resident Physician Dr. Jorge. I agree with the documented findings, disposition and treatment plan as described except to the extent set forth below. Ms. Brewster is a 52 year old woman active smoker with anxiety disorder, multiple sclerosis, hyperlipidemia, chronic tobacco dependence and Systolic CHF, HFrEF who underwent cardiac cath in April 2018 after presenting for NSTEMI but found to have normal coronaries now she presented to the ER complaining of increasing exertional chest pain that is now developing radiation to her left arm. She also gets short of breath and diaphoretic with these episodes. She reports that it feels bad because of her anxiety issues and has been undergoing emotional stress as she recently broke up with her fiance. She complains of pain also in the rest of her body including back, legs and knees however. In the ER her EKG showed ST depressions in the inferior leads but is unchanged from her prior EKG of 4 months ago. She was admitted in the hospital and placed on monitor tech. Her serial troponin came back is negative. Since she had a normal coronary arteries on her recent LHC, does not need ant further work up. Her chest pain is atypical and due to stress / anxiety related too. I did career and guidance counselor the patient to quit smoking and continue taking all her heart medications as scheduled. Also started her on Lasix PRN. Also recommend to f/u with Cardiology as an out pt. Gen: A, A, O x 3 Chest: Diminished BS b/l, no crackles, no rales Heart: S1S2+ RRR Ext: trace edema, no calf tenderness
--- NOTE | 2018-09-13 15:22 | Electrocardiograph Report ---
[address] [address] Test Date: 2018-09-12 Pat Name: Katie Brewster Department: [id number] Room: 3B46 Gender: F Assembler Type Bar And Segment: : 1965 Requested By: Darrius Leyva Order Number: [id number] Reading MD: Kyle Wilkerson Measurements Intervals [place] Rate: 102 P: 81 UT: 135 QRS: 80 QRSD: 81 T: 55 QT: 353 QTc: 460 Interpretive Statements Sinus tachycardia Minimal ST depression, inferior leads Electronically Signed On 09-13-2018 15:21:28 EDT by Kyle Wilkerson
[2018-09-13] MEDS ORDERED: Mirtazapine 15 MG TABLET PO SCH (21:00)
== END 2018-09-13 18:24 | disposition home or self-care (01) ==
LOC: EMEROOARM 19:54 → 3BNU 19:54
PROVIDERS: ADMIT Internal Medicine; ATTEND Internal Medicine